=== PATIENT | female | born 1950 | race Caucasian/White ===

== ENCOUNTER 2023-04-16 13:34 | Inpatient (IN) | payer MEDICARE, SELFPAY ==
[2023-04-16 14:00] VITALS: BP 106/46; PULSE 82; RESP 14; TEMP 35.9; O2SAT 98
[2023-04-16 15:27] VITALS: BMI 28.3
[2023-04-16 16:15] VITALS: O2SAT 96
[2023-04-16 17:01] LABS: Bedside Glucose 130 mg/dL (74-106)
[2023-04-16] MEDS: Enoxaparin 40 MG/0.4 ML Syringe SC (17:59)
[2023-04-16] MEDS: Cilostazol 50 MG Tablet PO (18:00)
--- NOTE | 2023-04-16 20:19 | HP.PCM_ITS ---
HPI - General General Date of Admission: 04/16/23 Date of Service: 04/16/23 Chief Complaint: Here for rehabilitation. HPI Narrative CELIA TUCKER, is a 73 Female who presents with followin04/01/2023 Fell at home while checking mail, fell into house. Multiple falls last 6 months. [facility] Emergency Department transferred patient to [facility]. 04/01/2023 Admit to [facility]. Right hip fracture. Tylenol, Oxycodone, Hydromorphone for pain. Labetalol/Hydralazine as needed for elevated blood pressure. 04/03/2023 Orthopedics performed right intramedullary nail fixation. 04/09/2023 PT/OT for debility. Add bowel regimen for oxycodone. Paxil 10mg daily for anxiety. Consider evaluation for memory loss as outpatient. 04/16/2023 Admit to TCU with debility, here for rehabilitation, strengthening, prior to discharge home with . [facility] Medical History (Updated 04/16/23 @ 20:[address] Christian Fu MD) Anxiety Closed right hip fracture Debility Diabetes mellitus Fall Hypertension Memory loss Home Medications acetaminophen 500 mg tablet 1,000 mg PO TID pain 04/16/23 [History Last Taken ] amlodipine 5 mg tablet 5 mg PO DAILY heart 04/16/23 [History Last Taken Unknown] cholecalciferol (vitamin D3) 25 mcg (1,000 unit) capsule 25 mcg PO DAILY supplement 04/16/23 [History Last Taken 04/16/23] cilostazol 50 mg tablet 50 mg PO BID blood 04/16/23 [History Last Taken 04/15/23] dapagliflozin propanediol 10 mg tablet (Farxiga) 10 mg PO DAILY diabetes 04/16/23 [History Last Taken 04/16/23] enoxaparin 40 mg/0.4 mL subcutaneous syringe 40 mg subcut Q12H blood thinner 04/16/23 [History Last Taken 04/16/23] hydrochlorothiazide 12.5 mg tablet 12.5 mg PO DAILY blood pressure 04/16/23 [H istory Last Taken 04/16/23] insulin glargine 100 unit/mL (3 mL) subcutaneous pen (Raymundo AminPen U-100 Insulin) 24 unit subcut QHS diabetes 04/16/23 [History Last Taken 04/15/23] insulin lispro 100 unit/mL subcutaneous pen 10 unit subcut TID diabetes 04/16/23 [History Last Taken 04/16/23] lisinopril 5 mg tablet 5 mg PO DAILY heart 04/16/23 [History Last Taken 04/16/23] melatonin 3 mg tablet 3 mg PO QHS PRN sleep 04/16/23 [History Last Taken Unknown] multivitamin (Multiple Vitamins tablet) 1 tab PO DAILY supplement 04/16/23 [History Last Taken Unknown] ondansetron 4 mg disintegrating tablet 4 mg PO Q8H PRN nausea and vomiting 04/16/23 [History Last Taken Unknown] oxycodone 5 mg tablet 5 mg PO Q6H PRN pain 04/16/23 [History Last Taken Unknown] paroxetine HCl 10 mg tablet 10 mg PO DAILY anxiety 04/16/23 [History Last Taken Unknown] polyethylene glycol 3350 17 gram oral powder packet (Miralax) 17 g PO DAILY PRN constipation 04/16/23 [History Last Taken Unknown] rosuvastatin 40 mg tablet (Crestor) 40 mg PO QHS cholesterol 04/16/23 [History Last Taken Unknown] Allergy/AdvReac Type Severity Reaction Status Date / Time No Known Allergies Allergy Verified 04/16/23 14:54 Surgical History (Updated 04/16/23 @ 20:[address] Christian Fu MD) History of hysterectomy Social History (Updated 04/16/23 @ 20:[address] Christian Fu MD) household members: spouse Smoking Status: Light Smoker (<10/day) alcohol intake: never substance use type: does not use ROS Constitutional Constitutional: Denies chills, fever(s) or weight gain ENT HEENT: Denies headache(s), nasal congestion or nasal discharge Cardiovascular Cardiovascular: Denies chest pain or palpitations Respiratory/Chest Respiratory/Chest: Denies cough, excessive phlegm production or shortness of breath with exertion Gastrointestinal Gastrointestinal: Denies abdominal pain, nausea or vomiting Genitourinary Genitourinary: Denies dysuria Musculoskeletal Musculoskeletal: Denies joint pain or joint swelling Integumentary Integumentary: Denies rash or wounds Neurologic Neurologic: Denies focal weakness, numbness or tingling Psychiatric Psychiatric: Denies anxiety, auditory hallucinations, depression, homicidal ideation or suicidal ideation Vital Signs Vital Signs Vital Signs: 04/16/23 14:00 04/16/23 16:15 Temperature 96.6 F L Temperature Source Temporal Pulse Rate 82 Pulse Rhythm Regular Pulse Strength Normal (2+) Respiratory Rate 14 Respiratory Effort Normal Non-Labored Respiratory Depth Normal Respiratory Pattern Normal Blood Pressure 106/46 L Blood Pressure Mean 66 Blood Pressure Source Monitor Blood Pressure Position Semi-Fowlers Blood Pressure Location Left Arm Pulse Ox 98 96 Oxygen Delivery Method Room Air Room Air Weight Weight: 65.726 kg Body Mass Index (BMI) 28.3 Physical Exam Const alert General Appearance: cooperative HEENT normocephalic Eyes PERRL and EOMs intact bilaterally Neck supple, no JVD and no carotid bruits Resp normal respiratory effort, normal air movement and clear to auscultation lyric aterally Cardio regular rate and regular rhythm GI normal to inspection, nondistended, normoactive bowel sounds, non-tender and non-distended Extremity normal capillary refill General Extremity: Negative for edema Skin no rashes or lesions noted General Skin Exam: no breakdown Psych affect normal Appearance: appropriate Results Lab / Micro Data Labs: Laboratory Results - last 24 hr 04/16/23 16:38: POC Glucose 130 H Assessment & Plan Assessment/Plan (1) Debility: (2) Fall: (3) Closed right hip fracture: (4) Diabetes mellitus: (5) Hypertension: (6) Anxiety: (7) Memory loss: PLAN: Plan 73 year old female with below past medical history hospitalized for right hip fracture, underwent right hip intramedullary nail fixation 04/03/2023, complicated by memory loss, admitted to TCU with debility, here for rehabilitation, strengthening, prior to discharge home with . * Debility - PT/OT. * Pain - Tylenol 1000mg tid, Oxycodone 5mg q4h prn pain (6-10) * Bowel - Miralax 17gm daily, senna/colace 2 tablets bid, Magnesium citrate 300ml po daily prn. * Adult immunization - Administer pneumonia vaccine, covid19 vaccine, flu vaccine as appropriate. * DVT prophylaxis - Lovenox 40mg sc daily thru 05/04/2023. * Hypertension - Lisinopril 5mg daily, HCTZ 12.5mg daily, Amlodipine 5mg daily. * Hyperlipidemia - Atorvastatin 80mg qhs. * PAOD - Pletal 50mg bid. * Diabetes Mellitus II - Glargine 24 units qhs, Lispro 10units tidcm, Jardiance 10mg daily. * Insomnia - Melatonin 3mg qhs prn. * Skin irritation - Calmoseptine topical bid. * Nutrition - MVI 1 daily. * Tinea Corporis - Nystatin powder topical bid. * Nausea - Zofran 4mg q8h prn. * Anxiety - Paxil 10mg daily * Vitamin D deficiency - D3 25mcg daily.
[2023-04-16] MEDS: Acetaminophen 500 MG Tablet 1000 MG PO (20:28)
[2023-04-16] MEDS: Atorvastatin Calcium 80 MG Tablet PO (20:29)
[2023-04-16] MEDS: Insulin Glargine-YFGN 100 UNIT/ML Pen 24 UNIT SC (20:29)
[2023-04-16 21:46] LABS: Bedside Glucose 147 mg/dL (74-106)
[2023-04-17] MEDS: Enoxaparin 40 MG/0.4 ML Syringe SC (05:17)
[2023-04-17] MEDS: hydroCHLOROthiazide 12.5mg 12.5 MG PO (05:17)
[2023-04-17] MEDS: Empagliflozin 10 MG Tablet PO (05:18)
[2023-04-17] MEDS: Cholecalciferol (VIT D3) 25 MCG TABLET (1,000 UNITS) PO (05:18)
[2023-04-17] MEDS: Cilostazol 50 MG Tablet PO ×2 (05:18→17:45)
[2023-04-17] MEDS: Senna/Docusate Sodium 1 Tablet 2 TABLET PO (05:18)
[2023-04-17] MEDS: amLODIPine 5 MG Tablet PO (05:18)
[2023-04-17] MEDS: Lisinopril 5 MG Tablet PO (05:18)
[2023-04-17] MEDS: Acetaminophen 500 MG Tablet 1000 MG PO ×3 (05:18→21:33)
[2023-04-17] MEDS: Polyethylene Glycol 3350 17 GM PACKET PO (05:19)
[2023-04-17] MEDS: PARoxetine 10 MG Tablet PO (05:20)
[2023-04-17] MEDS: Menthol/Lanolin/Calamine/Znox 113 GM Tube 1 APPLIC TOPICAL ×2 (05:25→17:48)
[2023-04-17 05:33] LABS: Absolute Lymphocyte Count 1.39 X10^3/uL (0.83-4.51); Basophil# 0.04 X10^3/uL; Basophil% 0.8 % (0-1); Hemoglobin 11.1 g/dL (12.0-15.0); Lymphocyte # 1.39 X10^3/ul (0.83-4.51); Lymphocyte % 28.2 % (19-41); Mean Corp Hgb Conc 31.7 g/dL (32-36); Mean Corpuscular Volume 94.6 fL (81-99); Mean Platelet Vol. 10.6 fl (6.2-12.0); Monocyte# 0.41 X10^3/uL; Monocyte% 8.3 % (0-10); NRBC Flagged by Analyzer 0 % (0-5); Neutrophil # 2.98 X10^3/uL (2.7-7.7); Neutrophil % 60.5 % (47-70); Platelet Count 227 K/mm3 (150-450); RBC Distribution Width CV 14.9 % (11.6-14.6); RBC Distribution Width SD 51.1 fl (35.1-43.9); White Blood Count 4.9 K/mm3 (4.4-11.0)
[2023-04-17 06:02] LABS: Anion Gap 3 (5-15); BUN 13 mg/dL (7-18); BUN/Creat Ratio 30.3 RATIO (10-20); Chloride 109 mmol/L (98-107); Creatinine, Serum 0.43 mg/dL (0.55-1.02); EST Glomerular Filtration Rate 153 mL/min (>60); Est Glom Filt Rate - Afr Amer 185 mL/min (>60); Estimated Creatinine Clearance 34.91 ml/min; Glucose 110 mg/dL (74-106); Potassium 3.8 mmol/L (3.5-5.1); Sodium Level 142 mmol/L (136-145)
[2023-04-17 06:27] LABS: Bedside Glucose 100 mg/dL (74-106)
[2023-04-17] MEDS: Nystatin Powder 15gm Bottle 1 APPLIC TOPICAL ×2 (08:42→17:48)
[2023-04-17] MEDS: Multivitamins,Therapeutic Tablet 1 TABLET PO (08:42)
[2023-04-17 11:20] LABS: Bedside Glucose 231 mg/dL (74-106)
--- NOTE | 2023-04-17 11:25 | NURSING ---
Dr. Hugo Campa office @[facility] ortho called and gave order for x-ray of Right femur 2 views. Send Disc to [address] [place] [address] [place], [place] [address]. Also, received order to remove nida if incision is healing. Orders read back.
--- NOTE | 2023-04-17 11:45 | RAD_ITS ---
STUDY: X-RAY - RIGHT FEMUR REASON FOR STUDY: Female, 73 years old. Follow up X-ray -- Send Disc to Dr. Hugo Campa [facility] TECHNIQUE: 4 view(s) of the femur. COMPARISON: None. FINDINGS: The patient is status post intramedullary gregory fixation of a comminuted distal femoral diaphyseal fracture. There is good alignment. Soft tissue swelling. There are atherosclerotic vascular calcifications. RAD/Femur Min 2 Views IMPRESSION: Status post intramedullary gregory fixation of the comminuted distal femoral diaphyseal fracture. There is good alignment. Postoperative soft tissue swelling. Electronically Signed: Hai Schwartz MD at 13:32 EDT ,
--- NOTE | 2023-04-17 11:45 | NURSING ---
Pastry Chef Note; Activity Asset: Tomas Ocampo is independent in her choice of daily activities. She has her own books and word puzzles to read and work on. Her family and friends will visit with her and bring her other items she may need or want. While in her room she will also watch tv and rest. She stated she really just wants to do therapy so she can get back home. She will welcome visit from the director software and therapy dog.
--- NOTE | 2023-04-17 11:47 | NURSING ---
Spoke w/ Surgeon for patient. Staple removal completed per surgeon request. 21 nida remove in multiple areas on right lower leg and one area on right upper leg. Patient tolerated removal overall well. Patient had minor reddened area and small minimal drainage noted to the upper right incision area. Note left for Tank about area to see if bacitracin would be appropriate. Patient then transported to imaging to get xrays per Surgeon request. Imaging to be pushed through electronically to surgeon. Surgeons office notified.
--- NOTE | 2023-04-17 11:49 | CHAPLAIN ---
Type of Pastoral Visit _x__ Initial Visit ___ Follow-up Visit ___ On-call Visit ___ General Patient Visit ___ Spiritual Assessment ___ Family Conference ___ Bereavement ___ Rapid Response ___ Code Blue ___ Other (describe below) Pastoral Care Referral From _x__ Patient ___ Family ___ Nurse ___ Physician ___ Lawn Mower Mechanic ___ Clerical Associate ___ Other (describe below) Sacrament/Intervention _x__ Active listening ___ Anointing ___ Sikh ___ Bereavement ___ Communion _x__ Halley exploration ___ _x__ Life review _x__ Prayer ___ Reconciliation ___ Sacrament of Sick _x__ Supportive presence ___ Wedding ___ Other (describe below) Pastoral Comments patient is welcoming and talkative; pt gives health story and in particular about her leg issues; pt speaks about her roots in [place] and how her mother raised her to go to temple; pt states that family is close and that is most important thing in her life; pt is not connected to a halley community at this time but expresses that she still believes and is happy that many family members are temple goers now; pt was given time to talk about her life and her interests; prayer given
[2023-04-17] MEDS: Insulin Lispro 100 UNIT/ML INSULN.PEN 10 UNIT SC ×2 (12:48→17:44)
--- NOTE | 2023-04-17 13:15 | CASEMGMT ---
Social Work Met with patient to complete initial assessment. Introduced self and role. Discussed code status and MOLST form. After much discussion and education, pt confirmed full code, MOLST placed in Dr folder. Educated to [facility] insurance with NRD 04/19 and continued stay is not guaranteed with each review. SW encouraged pt to contact insurance toe verify copays. Pt states she does have advanced directives but unsure if her or dtr is POA and unsure where it is located. Encouraged pt to have look for it and if located, to bring in a copy. Pt expressed understanding. Pt's goal is to return home at OF as cannot assist. SW will continue to follow for DC planning. Adelia Gipson, MIGUEL HUTCHISONW
--- NOTE | 2023-04-17 14:45 | PCM.PN.DRR ---
TCU RX Drug Regimen Review Subjective/Objective Subjective/Objective: Subjective: TCU Admission. 73 YOF presented to outside ER with a fall and transferred to [facility]. Hospitalized for right hip fracture, underwent right hip intramedullary nail fixation 04/03/2023, complicated by memory loss. Admitted to TCU with debility for strengthening and rehabilitation. Objective: Allergies No Known Allergies Allergy (Verified 04/16/23 14:54) Current Medications Generic Name Dose Route Start Last Admin Trade Name Hu PRN Reason Stop Dose Admin Acetaminophen 1,000 mg 04/16/23 22:00 04/17/23 05:18 Acetaminophen 500 Mg Tablet PO 1,000 mg TID LORENZO Administration Amlodipine Besylate 5 mg 04/17/23 06:00 04/17/23 05:18 Amlodipine 5 Mg Tablet PO 5 mg DAILY LORENZO Administration Atorvastatin Calcium 80 mg 04/16/23 22:00 04/16/23 20:29 Atorvastatin Calcium 80 Mg Tablet PO 80 mg QHS LORENZO Administration Calamine/Phenol 1 applic 04/17/23 06:00 04/17/23 05:25 Menthol/Lanolin/Calamine/Znox 113 Gm Tube TOPICAL 1 applic BID LORENZO Administration Protocol Cholecalciferol 25 mcg 04/17/23 06:00 04/17/23 05:18 Cholecalciferol (Vit D3) 25 Mcg Tablet (1,000 Units) PO 25 mcg DAILY LORENZO Administration Cilostazol 50 mg 04/16/23 18:00 04/17/23 05:18 Cilostazol 50 Mg Tablet PO 50 mg BID LORENZO Administration Empagliflozin 10 mg 04/17/23 06:00 04/17/23 05:18 Empagliflozin 10 Mg Tablet PO 10 mg DAILY LORENZO Administration Enoxaparin Sodium 40 mg 04/17/23 06:00 04/17/23 05:17 Enoxaparin 40 Mg/0.4 Ml Syringe SC 05/04/23 23:59 40 mg 0600 LORENZO Administration Hydrochlorothiazide 12.5 mg 04/17/23 06:00 04/17/23 05:17 Hydrochlorothiazide 12.5mg PO 12.5 mg DAILY LORENZO Administration Insulin Glargine 24 unit 04/16/23 22:00 04/16/23 20:29 Insulin Glargine-Yfgn 100 Unit/Ml Pen SC 24 unit QHS LORENZO Administration Insulin Human Lispro 10 unit 04/16/23 17:45 04/17/23 08:03 Insulin Lispro 100 Unit/Ml Insuln.Pen SC Not Given TIDCM [facility] Lisinopril 5 mg 04/17/23 06:00 04/17/23 05:18 Lisinopril 5 Mg Tablet PO 5 mg DAILY LORENZO Administration Magnesium Citrate 300 ml 04/16/23 20:34 Magnesium Citrate 300 Ml PO DAILY PRN Constipation Melatonin 3 mg 04/16/23 15:03 Melatonin 3 Mg Tablet PO QHS PRN sleep Multivitamins 1 tablet 04/17/23 08:00 04/17/23 08:42 Multivitamins,Therapeutic Tablet PO 1 tablet DAILYCM LORENZO Administration Nystatin 1 applic 04/17/23 06:00 04/17/23 08:42 Nystatin Powder 15gm Bottle TOPICAL 1 applic BID LORENZO Administration Protocol Ondansetron HCl 4 mg 04/16/23 15:03 Ondansetron Odt 4 Mg Tablet PO Q8H PRN nausea and vomiting Oxycodone HCl 5 mg 04/16/23 20:35 Oxycodone 5 Mg Tablet PO Q4H PRN PRN Pain Score 6-10 Paroxetine HCl 10 mg 04/17/23 06:00 04/17/23 05:20 Paroxetine 10 Mg Tablet PO 10 mg DAILY LORENZO Administration Polyethylene Glycol 17 gm 04/16/23 15:03 Polyethylene Glycol 3350 17 Gm Packet PO DAILY PRN constipation Polyethylene Glycol 17 gm 04/17/23 06:00 04/17/23 05:19 Polyethylene Glycol 3350 17 Gm Packet PO 17 gm DAILY LORENZO Administration Senna/Docusate Sodium 2 tablet 04/16/23 20:45 04/17/23 05:18 Senna/Docusate Sodium 1 Tablet PO 2 tablet BID LORENZO Administration Tuberculin PPD 0.1 ml 04/24/23 10:00 Tuberculin,Purif.Prot.Deriv. 50 Tu/Ml Vial ID 04/24/23 10:01 X1 ONE Problem List (Updated 04/16/23 @ 20:[address] Christian Fu MD) Memory loss (Acute) Anxiety (Acute) Hypertension (Chronic) Diabetes mellitus (Acute) Closed right hip fracture (Acute) Fall (Acute) Debility (Acute) Vital Signs Temp Pulse Resp BP Pulse Ox O2 Del Method 96.6 F L 82 14 106/46 L 96 Room Air 04/16/23 14:00 04/16/23 14:00 04/16/23 14:00 04/16/23 14:00 04/16/23 16:15 04/16/23 16:15 Oxygen Delivery Method Room Air Weight: 65.726 kg Body Mass Index (BMI) 28.3 Sodium 142 mmol/L (136-145) 04/17/23 05:08 Potassium 3.8 mmol/L (3.5-5.1) 04/17/23 05:08 Chloride 109 mmol/L (98-107) H 04/17/23 05:08 Carbon Dioxide 30.0 mmol/L (21.0-32.0) 04/17/23 05:08 Anion Gap 3 (5-15) L 04/17/23 05:08 BUN 13 mg/dL (7-18) 04/17/23 05:08 Creatinine 0.43 mg/dL (0.55-1.02) L 04/17/23 05:08 Est GFR (MDRD) Af Amer 185 mL/min (>60) 04/17/23 05:08 Est GFR (MDRD) Non-Af 153 mL/min (>60) 04/17/23 05:08 BUN/Creatinine Ratio 30.3 RATIO (10-20) H 04/17/23 05:08 Glucose 110 mg/dL (74-106) H 04/17/23 05:08 Assessment/Plan: 1. Pain: acetaminophen 1000mg PO TID and oxycodone 5mg PO Q4H PRN pain 6-10. Resident has not had any PRN doses. Please continue to monitor for increased pain and PRN usage. 2. Bowel: Miralax 17gm PO daily and daily PRN constipation, senna/docusate 2T PO BID and magnesium citrate 300mL PO daily PRN constipation. Resident has not used any PRN doses. Please continue to monitor for constipation and PRN usage. No documented bowel movements to date. 3. DVT prophylaxis: enoxaparin 40mg SC daily thru 05/04/23. Please continue to monitor for S/S of bleeding, renal function, hemoglobin (last 11.1g/dL) and platelets (last 227,000). 4. Hypertension: lisinopril 5 mg PO daily, hydrochlorothiazide 12.5 mg PO daily and amlodipine 5 mg PO daily. Continue to monitor BP (last 106/46 on 04/16), sodium (last 142 on 04/17), potassium (last 3.8 on 04/17), s/s of lower extremity swelling, renal function, cough and hypotension.?? 5. Hyperlipidemia: atorvastatin 80 mg PO QHS. Please consider ordering a lipid panel and LFTs if clinically appropriate as there are no levels in the chart. Thanks. Please continue to monitor for muscle pain. 6. PAOD: cilostazol 50 mg PO BID. Monitor WBCs/platelets with a CBC (last performed on 04/17) and for s/s of HF (Black Box Warning/BEERs: Cilostazol is CI in HF of any severity due to increased mortality). 7. Diabetes mellitus II: insulin glargine 24 units SC QHS, insulin lispro 10 units SC TIDCM, empagliflozin 10 mg PO daily. Continue to monitor blood glucose (last 231mg/dL) and for s/s of hypoglycemia and UTI.?Please consider ordering a hemoglobin A1c as there is no level in the chart. Thanks. 8. Insomnia: melatonin 3 mg PO DAILY PRN for insomnia. The resident has not had any PRN usage of this medication. Continue to monitor for s/s of insomnia and PRN usage.??? 9. Nutrition: multivitamin 1 tablet PO daily.?? 10. Nausea: ondansetron 4 mg PO Q8H PRN for nausea and vomiting. The resident has not had any prn usage of this medication. Continue to monitor for nausea/vomiting.? 11. Vitamin D deficiency: cholecalciferol 25 mcg PO daily. Please consider ordering a vitamin D level as there is no level in the chart. Thanks.? Assessment/Plan for indications treated with psychotropic medications: 1. Anxiety: paroxetine 10 mg PO daily. This medication is classified as a potentially inappropriate medication in older adults due to its anticholinergic properties, sedation, delirium, falls/fractures and potential for hypotension (Beers Criteria). Please consider GDR by 10/2023 if clinically appropriate. Thanks. Continue to monitor for suicidal ideation (Black Box Warning), GI side efffects and sodium.? Medical chart and medication regimen reviewed. The following medication irregularities or issues were identified: *1. Atorvastatin 80 mg PO QHS. Please consider ordering a lipid panel and LFTs if clinically appropriate as there are no levels in the chart. Thanks. *2. Insulin glargine 24 units SC QHS, insulin lispro 10 units SC TIDCM, empagliflozin 10 mg PO daily.?Please consider ordering a hemoglobin A1c as there is no level in the chart. Thanks. *3. Cholecalciferol 25 mcg PO daily. Please consider ordering a vitamin D level as there is no level in the chart. Thanks.? *4. Paroxetine 10 mg PO daily. Please consider GDR by 10/2023 if clinically appropriate. Thanks. Date Date of Note:: 04/17/23
[2023-04-17] MEDS: Tuberculin,Purif.prot.deriv. 50 TU/ML Vial 0.1 ML ID (15:49)
[2023-04-17 16:00] VITALS: BP 102/41; PULSE 110; RESP 14; TEMP 36.4; O2SAT 94
[2023-04-17 16:58] LABS: Bedside Glucose 292 mg/dL (74-106)
[2023-04-17] MEDS: BACITRACIN 15 GM Tube 1 APPLIC TOPICAL ×2 (17:44→21:32)
[2023-04-17 21:24] LABS: Bedside Glucose 97 mg/dL (74-106)
[2023-04-17] MEDS: MELATONIN 3 MG TABLET PO (21:32)
[2023-04-17] MEDS: Atorvastatin Calcium 80 MG Tablet PO (21:33)
[2023-04-17 23:00] VITALS: PULSE 86; RESP 16; O2SAT 97
[2023-04-18 06:20] LABS: Bedside Glucose 127 mg/dL (74-106)
[2023-04-18] MEDS: Menthol/Lanolin/Calamine/Znox 113 GM Tube 1 APPLIC TOPICAL ×2 (06:35→17:08)
[2023-04-18] MEDS: hydroCHLOROthiazide 12.5mg 12.5 MG PO (06:36)
[2023-04-18] MEDS: Senna/Docusate Sodium 1 Tablet 2 TABLET PO ×2 (06:36→17:07)
[2023-04-18] MEDS: Cilostazol 50 MG Tablet PO ×2 (06:36→17:07)
[2023-04-18] MEDS: amLODIPine 5 MG Tablet PO (06:36)
[2023-04-18] MEDS: Polyethylene Glycol 3350 17 GM PACKET PO (06:36)
[2023-04-18] MEDS: Lisinopril 5 MG Tablet PO (06:36)
[2023-04-18] MEDS: Acetaminophen 500 MG Tablet 1000 MG PO ×3 (06:36→21:18)
[2023-04-18] MEDS: PARoxetine 10 MG Tablet PO (06:36)
[2023-04-18] MEDS: Enoxaparin 40 MG/0.4 ML Syringe SC (06:36)
[2023-04-18] MEDS: Cholecalciferol (VIT D3) 25 MCG TABLET (1,000 UNITS) PO (06:36)
[2023-04-18] MEDS: Empagliflozin 10 MG Tablet PO (06:37)
[2023-04-18] MEDS: Nystatin Powder 15gm Bottle 1 APPLIC TOPICAL ×2 (06:42→17:08)
[2023-04-18] MEDS: BACITRACIN 15 GM Tube 1 APPLIC TOPICAL ×3 (06:42→21:20)
[2023-04-18 06:48] VITALS: BP 115/60; PULSE 84; RESP 16
[2023-04-18] MEDS: Insulin Lispro 100 UNIT/ML INSULN.PEN 10 UNIT SC ×3 (07:56→17:07)
[2023-04-18] MEDS: Multivitamins,Therapeutic Tablet 1 TABLET PO (07:56)
[2023-04-18 10:55] LABS: Bedside Glucose 172 mg/dL (74-106)
[2023-04-18 14:49] VITALS: BP 101/55; PULSE 86; RESP 20; TEMP 36.6; O2SAT 98
[2023-04-18 16:41] LABS: Bedside Glucose 147 mg/dL (74-106)
[2023-04-18] MEDS: Atorvastatin Calcium 80 MG Tablet PO (21:18)
[2023-04-18] MEDS: Insulin Glargine-YFGN 100 UNIT/ML Pen 24 UNIT SC (21:18)
[2023-04-18 21:33] LABS: Bedside Glucose 242 mg/dL (74-106)
[2023-04-19 05:50] VITALS: BP 113/99; PULSE 82
[2023-04-19] MEDS: Senna/Docusate Sodium 1 Tablet 2 TABLET PO ×2 (05:57→17:41)
[2023-04-19] MEDS: PARoxetine 10 MG Tablet PO (05:57)
[2023-04-19] MEDS: Empagliflozin 10 MG Tablet PO (05:57)
[2023-04-19] MEDS: Polyethylene Glycol 3350 17 GM PACKET PO (05:58)
[2023-04-19] MEDS: Cholecalciferol (VIT D3) 25 MCG TABLET (1,000 UNITS) PO (05:58)
[2023-04-19] MEDS: Cilostazol 50 MG Tablet PO ×2 (05:58→17:40)
[2023-04-19] MEDS: Lisinopril 5 MG Tablet PO (05:58)
[2023-04-19] MEDS: Enoxaparin 40 MG/0.4 ML Syringe SC (05:58)
[2023-04-19] MEDS: hydroCHLOROthiazide 12.5mg 12.5 MG PO (05:58)
[2023-04-19] MEDS: amLODIPine 5 MG Tablet PO (05:58)
[2023-04-19] MEDS: Acetaminophen 500 MG Tablet 1000 MG PO ×3 (05:58→21:00)
[2023-04-19] MEDS: Nystatin Powder 15gm Bottle 1 APPLIC TOPICAL ×2 (06:06→17:44)
[2023-04-19] MEDS: Menthol/Lanolin/Calamine/Znox 113 GM Tube 1 APPLIC TOPICAL ×2 (06:07→17:44)
[2023-04-19 06:34] LABS: Bedside Glucose 111 mg/dL (74-106)
[2023-04-19] MEDS: Multivitamins,Therapeutic Tablet 1 TABLET PO (07:44)
[2023-04-19] MEDS: Insulin Lispro 100 UNIT/ML INSULN.PEN 10 UNIT SC ×3 (07:45→17:39)
[2023-04-19 11:47] LABS: Bedside Glucose 99 mg/dL (74-106)
[2023-04-19 13:52] VITALS: BP 122/102; PULSE 67; RESP 20; TEMP 36.2; O2SAT 96
[2023-04-19] MEDS: BACITRACIN 15 GM Tube 1 APPLIC TOPICAL ×2 (14:23→21:00)
[2023-04-19 17:23] LABS: Bedside Glucose 134 mg/dL (74-106)
[2023-04-19] MEDS: Insulin Glargine-YFGN 100 UNIT/ML Pen 24 UNIT SC (21:00)
[2023-04-19] MEDS: Atorvastatin Calcium 80 MG Tablet PO (21:00)
[2023-04-19 21:19] LABS: Bedside Glucose 175 mg/dL (74-106)
[2023-04-19 22:00] VITALS: PULSE 78; RESP 16; O2SAT 97
[2023-04-20] MEDS: Enoxaparin 40 MG/0.4 ML Syringe SC (06:30)
[2023-04-20] MEDS: Polyethylene Glycol 3350 17 GM PACKET PO (06:30)
[2023-04-20] MEDS: Acetaminophen 500 MG Tablet 1000 MG PO ×3 (06:30→21:51)
[2023-04-20] MEDS: Cilostazol 50 MG Tablet PO ×2 (06:30→17:34)
[2023-04-20] MEDS: Lisinopril 5 MG Tablet PO (06:31)
[2023-04-20] MEDS: amLODIPine 5 MG Tablet PO (06:31)
[2023-04-20] MEDS: Cholecalciferol (VIT D3) 25 MCG TABLET (1,000 UNITS) PO (06:31)
[2023-04-20] MEDS: Senna/Docusate Sodium 1 Tablet 2 TABLET PO ×2 (06:31→17:34)
[2023-04-20] MEDS: Menthol/Lanolin/Calamine/Znox 113 GM Tube 1 APPLIC TOPICAL ×2 (06:31→15:19)
[2023-04-20] MEDS: Nystatin Powder 15gm Bottle 1 APPLIC TOPICAL ×2 (06:31→17:35)
[2023-04-20] MEDS: hydroCHLOROthiazide 12.5mg 12.5 MG PO (06:31)
[2023-04-20] MEDS: BACITRACIN 15 GM Tube 1 APPLIC TOPICAL ×3 (06:32→21:53)
[2023-04-20] MEDS: Empagliflozin 10 MG Tablet PO (06:32)
[2023-04-20 07:01] LABS: Bedside Glucose 136 mg/dL (74-106)
[2023-04-20] MEDS: PARoxetine 10 MG Tablet PO (07:09)
[2023-04-20 07:39] LABS: Bedside Glucose 152 mg/dL (74-106)
[2023-04-20] MEDS: Insulin Lispro 100 UNIT/ML INSULN.PEN 10 UNIT SC ×3 (08:27→17:36)
[2023-04-20] MEDS: Multivitamins,Therapeutic Tablet 1 TABLET PO (09:26)
[2023-04-20] MEDS: oxyCODONE 5 MG Tablet PO (09:33)
[2023-04-20 11:07] LABS: Bedside Glucose 127 mg/dL (74-106)
[2023-04-20 15:02] VITALS: BP 120/54; PULSE 83; RESP 16; TEMP 36.6; O2SAT 97
[2023-04-20 16:14] LABS: Bedside Glucose 177 mg/dL (74-106)
[2023-04-20 19:53] VITALS: PULSE 85; RESP 16; O2SAT 98
[2023-04-20] MEDS: Atorvastatin Calcium 80 MG Tablet PO (21:52)
[2023-04-20] MEDS: Insulin Glargine-YFGN 100 UNIT/ML Pen 24 UNIT SC (21:52)
[2023-04-20 22:03] LABS: Bedside Glucose 158 mg/dL (74-106)
[2023-04-21] MEDS: Cilostazol 50 MG Tablet PO ×2 (06:18→17:19)
[2023-04-21] MEDS: Lisinopril 5 MG Tablet PO (06:18)
[2023-04-21] MEDS: Senna/Docusate Sodium 1 Tablet 2 TABLET PO (06:18)
[2023-04-21] MEDS: Acetaminophen 500 MG Tablet 1000 MG PO ×3 (06:18→21:30)
[2023-04-21] MEDS: Cholecalciferol (VIT D3) 25 MCG TABLET (1,000 UNITS) PO (06:18)
[2023-04-21] MEDS: amLODIPine 5 MG Tablet PO (06:18)
[2023-04-21] MEDS: hydroCHLOROthiazide 12.5mg 12.5 MG PO (06:18)
[2023-04-21] MEDS: Enoxaparin 40 MG/0.4 ML Syringe SC (06:19)
[2023-04-21] MEDS: PARoxetine 10 MG Tablet PO (06:22)
[2023-04-21] MEDS: BACITRACIN 15 GM Tube 1 APPLIC TOPICAL ×3 (06:22→21:31)
[2023-04-21] MEDS: Empagliflozin 10 MG Tablet PO (06:22)
[2023-04-21] MEDS: Nystatin Powder 15gm Bottle 1 APPLIC TOPICAL ×2 (06:23→17:20)
[2023-04-21 06:46] LABS: Bedside Glucose 111 mg/dL (74-106)
[2023-04-21] MEDS: Multivitamins,Therapeutic Tablet 1 TABLET PO (08:14)
[2023-04-21] MEDS: Insulin Lispro 100 UNIT/ML INSULN.PEN 10 UNIT SC ×3 (08:15→17:19)
[2023-04-21] MEDS: Menthol/Lanolin/Calamine/Znox 113 GM Tube 1 APPLIC TOPICAL ×2 (08:18→17:23)
[2023-04-21 11:55] LABS: Bedside Glucose 77 mg/dL (74-106)
[2023-04-21 15:57] VITALS: BP 98/47; PULSE 83; RESP 16; TEMP 36.2; O2SAT 98
[2023-04-21 17:23] LABS: Bedside Glucose 90 mg/dL (74-106)
[2023-04-21] MEDS: Atorvastatin Calcium 80 MG Tablet PO (21:31)
[2023-04-21 21:44] LABS: Bedside Glucose 87 mg/dL (74-106)
--- NOTE | 2023-04-21 22:00 | NURSING ---
Patients blood sugar at HS 87. Patient ate some ice cream. Lantus 24U held at this time. Will continue to monitor.
[2023-04-22] MEDS: BACITRACIN 15 GM Tube 1 APPLIC TOPICAL (05:24)
[2023-04-22] MEDS: Acetaminophen 500 MG Tablet 1000 MG PO ×3 (05:25→21:19)
[2023-04-22] MEDS: Cilostazol 50 MG Tablet PO ×2 (05:25→18:02)
[2023-04-22] MEDS: Cholecalciferol (VIT D3) 25 MCG TABLET (1,000 UNITS) PO (05:25)
[2023-04-22] MEDS: Lisinopril 5 MG Tablet PO (05:25)
[2023-04-22] MEDS: Enoxaparin 40 MG/0.4 ML Syringe SC (05:25)
[2023-04-22] MEDS: hydroCHLOROthiazide 12.5mg 12.5 MG PO (05:25)
[2023-04-22] MEDS: amLODIPine 5 MG Tablet PO (05:25)
[2023-04-22] MEDS: Nystatin Powder 15gm Bottle 1 APPLIC TOPICAL ×2 (05:26→18:01)
[2023-04-22] MEDS: Empagliflozin 10 MG Tablet PO (05:26)
[2023-04-22] MEDS: PARoxetine 10 MG Tablet PO (05:26)
[2023-04-22] MEDS: Menthol/Lanolin/Calamine/Znox 113 GM Tube 1 APPLIC TOPICAL ×2 (05:27→18:01)
[2023-04-22 06:55] LABS: Bedside Glucose 100 mg/dL (74-106)
[2023-04-22] MEDS: Insulin Lispro 100 UNIT/ML INSULN.PEN 10 UNIT SC ×3 (08:41→18:01)
[2023-04-22] MEDS: Multivitamins,Therapeutic Tablet 1 TABLET PO (08:41)
--- NOTE | 2023-04-22 11:51 | NURSING ---
Offered covid vaccine, provided education about vaccine. Patient refuses at this time.
[2023-04-22 11:58] LABS: Bedside Glucose 206 mg/dL (74-106)
[2023-04-22 15:11] VITALS: BP 108/43; PULSE 81; RESP 16; TEMP 35.8; O2SAT 97
--- NOTE | 2023-04-22 15:29 | WOUNDNOTE ---
wound photo: right anterior thigh
--- NOTE | 2023-04-22 15:30 | WOUNDNOTE ---
wound photo: right leg
--- NOTE | 2023-04-22 15:31 | WOUNDNOTE ---
wound photo: right leg
[2023-04-22 17:43] LABS: Bedside Glucose 114 mg/dL (74-106)
[2023-04-22 20:00] VITALS: PULSE 86; RESP 16; O2SAT 96
[2023-04-22] MEDS: Insulin Glargine-YFGN 100 UNIT/ML Pen 24 UNIT SC (21:19)
[2023-04-22] MEDS: Atorvastatin Calcium 80 MG Tablet PO (21:19)
[2023-04-22 21:36] LABS: Bedside Glucose 163 mg/dL (74-106)
[2023-04-23] MEDS: Nystatin Powder 15gm Bottle 1 APPLIC TOPICAL ×2 (06:13→18:32)
[2023-04-23] MEDS: Enoxaparin 40 MG/0.4 ML Syringe SC (06:15)
[2023-04-23] MEDS: Senna/Docusate Sodium 1 Tablet 2 TABLET PO (06:15)
[2023-04-23] MEDS: Cholecalciferol (VIT D3) 25 MCG TABLET (1,000 UNITS) PO (06:15)
[2023-04-23] MEDS: Polyethylene Glycol 3350 17 GM PACKET PO (06:15)
[2023-04-23] MEDS: Lisinopril 5 MG Tablet PO (06:16)
[2023-04-23] MEDS: Empagliflozin 10 MG Tablet PO (06:16)
[2023-04-23] MEDS: hydroCHLOROthiazide 12.5mg 12.5 MG PO (06:16)
[2023-04-23] MEDS: amLODIPine 5 MG Tablet PO (06:16)
[2023-04-23] MEDS: Acetaminophen 500 MG Tablet 1000 MG PO ×3 (06:16→21:18)
[2023-04-23] MEDS: Cilostazol 50 MG Tablet PO ×2 (06:16→18:32)
[2023-04-23] MEDS: PARoxetine 10 MG Tablet PO (06:17)
[2023-04-23] MEDS: Menthol/Lanolin/Calamine/Znox 113 GM Tube 1 APPLIC TOPICAL ×2 (06:22→21:22)
[2023-04-23 06:30] VITALS: BP 108/60; PULSE 78; RESP 16
[2023-04-23 06:32] LABS: Bedside Glucose 124 mg/dL (74-106)
[2023-04-23] MEDS: Insulin Lispro 100 UNIT/ML INSULN.PEN 10 UNIT SC ×3 (08:07→18:32)
[2023-04-23] MEDS: Multivitamins,Therapeutic Tablet 1 TABLET PO (08:08)
[2023-04-23 11:08] LABS: Bedside Glucose 216 mg/dL (74-106)
[2023-04-23 14:08] VITALS: BP 120/52; PULSE 87; RESP 16; TEMP 36.1; O2SAT 97
[2023-04-23 17:11] LABS: Bedside Glucose 140 mg/dL (74-106)
[2023-04-23] MEDS: Atorvastatin Calcium 80 MG Tablet PO (21:19)
[2023-04-23] MEDS: Insulin Glargine-YFGN 100 UNIT/ML Pen 24 UNIT SC (21:19)
[2023-04-24] MEDS: hydroCHLOROthiazide 12.5mg 12.5 MG PO (05:13)
[2023-04-24] MEDS: Senna/Docusate Sodium 1 Tablet 2 TABLET PO (05:13)
[2023-04-24] MEDS: Lisinopril 5 MG Tablet PO (05:14)
[2023-04-24] MEDS: PARoxetine 10 MG Tablet PO (05:14)
[2023-04-24] MEDS: Cholecalciferol (VIT D3) 25 MCG TABLET (1,000 UNITS) PO (05:14)
[2023-04-24] MEDS: Acetaminophen 500 MG Tablet 1000 MG PO ×3 (05:14→21:24)
[2023-04-24] MEDS: Cilostazol 50 MG Tablet PO ×2 (05:14→17:58)
[2023-04-24] MEDS: amLODIPine 5 MG Tablet PO (05:14)
[2023-04-24] MEDS: Polyethylene Glycol 3350 17 GM PACKET PO (05:14)
[2023-04-24] MEDS: Empagliflozin 10 MG Tablet PO (05:14)
[2023-04-24 05:20] VITALS: BP 138/69; PULSE 85
[2023-04-24 05:45] LABS: Absolute Lymphocyte Count 1.15 X10^3/uL (0.83-4.51); Absolute Neutrophil Count 2.8 X10^3/uL (2.0-7.7); Basophil# 0.02 X10^3/uL; Basophil% 0.5 % (0-1); Eosinophil# 0.08 X10^3/uL; Eosinophils% 1.8 % (0-5); Hematocrit 37.3 % (37-47); Hemoglobin 11.8 g/dL (12.0-15.0); Lymphocyte # 1.15 X10^3/ul (0.83-4.51); Lymphocyte % 26.4 % (19-41); Mean Corp Hgb Conc 31.6 g/dL (32-36); Mean Corpuscular Hgb 30.1 pg (27.0-32.0); Mean Corpuscular Volume 95.2 fL (81-99); Mean Platelet Vol. 10.4 fl (6.2-12.0); Monocyte# 0.33 X10^3/uL; Monocyte% 7.6 % (0-10); NRBC Flagged by Analyzer 0 % (0-5); Neutrophil # 2.76 X10^3/uL (2.7-7.7); Neutrophil % 63.5 % (47-70); Platelet Count 215 K/mm3 (150-450); RBC Distribution Width CV 14.6 % (11.6-14.6); RBC Distribution Width SD 51.4 fl (35.1-43.9); Red Blood Count 3.92 M/mm3 (4.2-5.4); White Blood Count 4.4 K/mm3 (4.4-11.0)
[2023-04-24 06:06] LABS: Anion Gap 3 (5-15); BUN 15 mg/dL (7-18); BUN/Creat Ratio 40.1 RATIO (10-20); Calcium,Total 8.8 mg/dL (8.5-10.1); Chloride 109 mmol/L (98-107); Creatinine, Serum 0.37 mg/dL (0.55-1.02); EST Glomerular Filtration Rate 179 mL/min (>60); Est Glom Filt Rate - Afr Amer 216 mL/min (>60); Estimated Creatinine Clearance 34.91 ml/min; Glucose 102 mg/dL (74-106); Potassium 3.6 mmol/L (3.5-5.1); Sodium Level 142 mmol/L (136-145)
[2023-04-24 06:40] LABS: Bedside Glucose 113 mg/dL (74-106)
[2023-04-24] MEDS: Enoxaparin 40 MG/0.4 ML Syringe SC (07:58)
[2023-04-24] MEDS: Menthol/Lanolin/Calamine/Znox 113 GM Tube 1 APPLIC TOPICAL ×2 (07:59→18:01)
[2023-04-24] MEDS: Nystatin Powder 15gm Bottle 1 APPLIC TOPICAL ×2 (08:01→18:01)
[2023-04-24] MEDS: Insulin Lispro 100 UNIT/ML INSULN.PEN 10 UNIT SC ×3 (08:45→17:57)
[2023-04-24] MEDS: Multivitamins,Therapeutic Tablet 1 TABLET PO (08:45)
[2023-04-24 11:17] LABS: Bedside Glucose 203 mg/dL (74-106)
[2023-04-24] MEDS: Tuberculin,Purif.prot.deriv. 50 TU/ML Vial 0.1 ML ID (12:11)
[2023-04-24 13:39] VITALS: BP 98/41; PULSE 90; RESP 14; TEMP 37.1; O2SAT 97
--- NOTE | 2023-04-24 14:34 | CASEMGMT ---
Social Work Plan of care meeting held with pt, pts spouse and pts son Nakul present. Therapy discussed progress with PT, OT and ST. SW notified pt and family that NRD with insurance is 04/29 with expected d/c date of 05/02. SW discussed home situation and pt falls and possible need for AL. PT and family adamant that pt can return home on date set and have no concerns. Son Nakul states he can assist as needed. Pt states that she does not follow with a PCP but had seen [facility] in the past. Team expressed importance of following with PCP for medical management. Home health care also discussed and pt agreeable. Pt would benefit from Home health RN for medication management and diabetic teaching. SW will continue to follow for DC planning. ALEJANDRO Bailey
--- NOTE | 2023-04-24 14:47 | NURSING ---
Family request patient to get nutritional drink with meals. This nurse reports network field engineer evaluates needs for nutritional supplement at intervals. Discuss with patient and she reports appetite has been good and actually wants to loose some weight but that her drinks boosts which helps his energy levels. Discuss the purpose of boost and that if she is eating her meals and healing well, nutritional supplement may not be appropriate but that network field engineer will evaluate. Patient reports understanding and that she probably doesn't need this ordered at hospital at this time.
[2023-04-24 16:19] LABS: Bedside Glucose 155 mg/dL (74-106)
[2023-04-24] MEDS: Atorvastatin Calcium 80 MG Tablet PO (21:24)
[2023-04-24] MEDS: Insulin Glargine-YFGN 100 UNIT/ML Pen 24 UNIT SC (21:31)
[2023-04-24 21:56] LABS: Bedside Glucose 186 mg/dL (74-106)
[2023-04-25] MEDS: Menthol/Lanolin/Calamine/Znox 113 GM Tube 1 APPLIC TOPICAL ×2 (05:32→18:22)
[2023-04-25] MEDS: Nystatin Powder 15gm Bottle 1 APPLIC TOPICAL ×2 (05:32→22:04)
[2023-04-25] MEDS: Enoxaparin 40 MG/0.4 ML Syringe SC (05:33)
[2023-04-25] MEDS: Senna/Docusate Sodium 1 Tablet 2 TABLET PO (05:33)
[2023-04-25] MEDS: amLODIPine 5 MG Tablet PO (05:34)
[2023-04-25] MEDS: Cholecalciferol (VIT D3) 25 MCG TABLET (1,000 UNITS) PO (05:34)
[2023-04-25] MEDS: Cilostazol 50 MG Tablet PO ×2 (05:34→18:20)
[2023-04-25] MEDS: Acetaminophen 500 MG Tablet 1000 MG PO ×3 (05:34→22:04)
[2023-04-25] MEDS: hydroCHLOROthiazide 12.5mg 12.5 MG PO (05:35)
[2023-04-25] MEDS: Lisinopril 5 MG Tablet PO (05:35)
[2023-04-25] MEDS: PARoxetine 10 MG Tablet PO (05:36)
[2023-04-25] MEDS: Empagliflozin 10 MG Tablet PO (05:36)
[2023-04-25 06:39] LABS: Bedside Glucose 119 mg/dL (74-106)
[2023-04-25 07:03] VITALS: BP 123/62; PULSE 93; RESP 18; O2SAT 95
[2023-04-25] MEDS: Insulin Lispro 100 UNIT/ML INSULN.PEN 10 UNIT SC ×3 (08:27→18:18)
[2023-04-25] MEDS: Multivitamins,Therapeutic Tablet 1 TABLET PO (08:29)
[2023-04-25 11:23] LABS: Bedside Glucose 105 mg/dL (74-106)
--- NOTE | 2023-04-25 14:33 | CASEMGMT ---
SW spoke with community marketing coordinator regarding pt stating she does not have PCP. Per community marketing coordinator, phone call to [facility] and pt is current with Michelle Fernandez CNP. Appointment made for 05/10/23. ALEJANDRO Bailey
[2023-04-25 14:47] LABS: Bedside Glucose 195 mg/dL (74-106)
[2023-04-25 15:41] VITALS: BP 107/46; PULSE 79; RESP 15; TEMP 35.9; O2SAT 96
[2023-04-25 16:39] LABS: Bedside Glucose 105 mg/dL (74-106)
[2023-04-25 21:28] LABS: Bedside Glucose 142 mg/dL (74-106)
[2023-04-25] MEDS: Atorvastatin Calcium 80 MG Tablet PO (22:04)
[2023-04-25] MEDS: Insulin Glargine-YFGN 100 UNIT/ML Pen 24 UNIT SC (22:05)
[2023-04-26] MEDS: Enoxaparin 40 MG/0.4 ML Syringe SC (06:10)
[2023-04-26] MEDS: Lisinopril 5 MG Tablet PO (06:11)
[2023-04-26] MEDS: Acetaminophen 500 MG Tablet 1000 MG PO ×3 (06:11→22:02)
[2023-04-26] MEDS: PARoxetine 10 MG Tablet PO (06:11)
[2023-04-26] MEDS: amLODIPine 5 MG Tablet PO (06:11)
[2023-04-26] MEDS: Cilostazol 50 MG Tablet PO ×2 (06:11→18:43)
[2023-04-26] MEDS: Empagliflozin 10 MG Tablet PO (06:11)
[2023-04-26] MEDS: Cholecalciferol (VIT D3) 25 MCG TABLET (1,000 UNITS) PO (06:11)
[2023-04-26] MEDS: Senna/Docusate Sodium 1 Tablet 2 TABLET PO ×2 (06:11→18:43)
[2023-04-26] MEDS: hydroCHLOROthiazide 12.5mg 12.5 MG PO (06:11)
[2023-04-26] MEDS: Menthol/Lanolin/Calamine/Znox 113 GM Tube 1 APPLIC TOPICAL ×2 (06:16→18:48)
[2023-04-26] MEDS: Nystatin Powder 15gm Bottle 1 APPLIC TOPICAL ×2 (06:16→18:48)
[2023-04-26 06:30] LABS: Bedside Glucose 93 mg/dL (74-106)
[2023-04-26] MEDS: Multivitamins,Therapeutic Tablet 1 TABLET PO (09:09)
[2023-04-26 11:42] LABS: Bedside Glucose 188 mg/dL (74-106)
[2023-04-26] MEDS: Insulin Lispro 100 UNIT/ML INSULN.PEN 7 UNIT SC ×2 (12:57→18:43)
[2023-04-26 15:53] VITALS: BP 119/61; PULSE 87; RESP 16; TEMP 36.3; O2SAT 96
[2023-04-26 17:19] LABS: Bedside Glucose 189 mg/dL (74-106)
[2023-04-26] MEDS: Atorvastatin Calcium 80 MG Tablet PO (22:02)
[2023-04-26] MEDS: Insulin Glargine-YFGN 100 UNIT/ML Pen 20 UNIT SC (22:02)
[2023-04-26 22:30] LABS: Bedside Glucose 161 mg/dL (74-106)
[2023-04-27] MEDS: Acetaminophen 500 MG Tablet 1000 MG PO ×3 (05:52→22:17)
[2023-04-27] MEDS: hydroCHLOROthiazide 12.5mg 12.5 MG PO (05:53)
[2023-04-27] MEDS: Empagliflozin 10 MG Tablet PO (05:54)
[2023-04-27] MEDS: Enoxaparin 40 MG/0.4 ML Syringe SC (05:54)
[2023-04-27] MEDS: Cilostazol 50 MG Tablet PO ×2 (05:54→17:18)
[2023-04-27] MEDS: Lisinopril 5 MG Tablet PO (05:54)
[2023-04-27] MEDS: PARoxetine 10 MG Tablet PO (05:55)
[2023-04-27] MEDS: Senna/Docusate Sodium 1 Tablet 2 TABLET PO ×2 (05:56→17:16)
[2023-04-27] MEDS: amLODIPine 5 MG Tablet PO (05:56)
[2023-04-27] MEDS: Nystatin Powder 15gm Bottle 1 APPLIC TOPICAL ×2 (05:57→17:20)
[2023-04-27] MEDS: Cholecalciferol (VIT D3) 25 MCG TABLET (1,000 UNITS) PO (05:57)
[2023-04-27] MEDS: Menthol/Lanolin/Calamine/Znox 113 GM Tube 1 APPLIC TOPICAL ×2 (05:58→17:18)
[2023-04-27 07:17] LABS: Bedside Glucose 88 mg/dL (74-106)
[2023-04-27] MEDS: Multivitamins,Therapeutic Tablet 1 TABLET PO (08:10)
[2023-04-27] MEDS: Insulin Lispro 100 UNIT/ML INSULN.PEN 7 UNIT SC ×3 (08:14→17:16)
[2023-04-27 08:45] VITALS: PULSE 99; RESP 18; O2SAT 92
[2023-04-27 10:46] LABS: Bedside Glucose 108 mg/dL (74-106)
[2023-04-27 14:04] VITALS: BP 106/44; PULSE 82; RESP 18; TEMP 36.2; O2SAT 93
[2023-04-27 16:28] LABS: Bedside Glucose 108 mg/dL (74-106)
[2023-04-27 21:47] LABS: Bedside Glucose 122 mg/dL (74-106)
[2023-04-27] MEDS: Atorvastatin Calcium 80 MG Tablet PO (22:17)
[2023-04-27] MEDS: Insulin Glargine-YFGN 100 UNIT/ML Pen 20 UNIT SC (22:18)
[2023-04-28] MEDS: Acetaminophen 500 MG Tablet 1000 MG PO ×3 (05:06→21:34)
[2023-04-28] MEDS: Cilostazol 50 MG Tablet PO ×2 (05:07→18:01)
[2023-04-28] MEDS: amLODIPine 5 MG Tablet PO (05:07)
[2023-04-28] MEDS: PARoxetine 10 MG Tablet PO (05:08)
[2023-04-28] MEDS: Lisinopril 5 MG Tablet PO (05:09)
[2023-04-28] MEDS: hydroCHLOROthiazide 12.5mg 12.5 MG PO (05:09)
[2023-04-28] MEDS: Enoxaparin 40 MG/0.4 ML Syringe SC (05:09)
[2023-04-28] MEDS: Empagliflozin 10 MG Tablet PO (05:09)
[2023-04-28] MEDS: Cholecalciferol (VIT D3) 25 MCG TABLET (1,000 UNITS) PO (05:09)
[2023-04-28] MEDS: Menthol/Lanolin/Calamine/Znox 113 GM Tube 1 APPLIC TOPICAL ×2 (05:10→18:02)
[2023-04-28] MEDS: Nystatin Powder 15gm Bottle 1 APPLIC TOPICAL ×2 (05:11→18:02)
[2023-04-28 05:23] VITALS: BP 126/50; PULSE 90
[2023-04-28 06:34] LABS: Bedside Glucose 112 mg/dL (74-106)
[2023-04-28] MEDS: Multivitamins,Therapeutic Tablet 1 TABLET PO (08:36)
[2023-04-28] MEDS: Insulin Lispro 100 UNIT/ML INSULN.PEN 7 UNIT SC ×3 (08:37→18:05)
[2023-04-28 11:09] LABS: Bedside Glucose 193 mg/dL (74-106)
[2023-04-28 11:10] VITALS: PULSE 68; RESP 18; O2SAT 97
[2023-04-28 13:57] VITALS: BP 116/45; PULSE 80; RESP 16; TEMP 36.2; O2SAT 96
[2023-04-28 16:26] LABS: Bedside Glucose 222 mg/dL (74-106)
[2023-04-28] MEDS: Senna/Docusate Sodium 1 Tablet 2 TABLET PO (18:01)
[2023-04-28] MEDS: Atorvastatin Calcium 80 MG Tablet PO (19:57)
[2023-04-28 21:22] LABS: Bedside Glucose 171 mg/dL (74-106)
[2023-04-28] MEDS: Insulin Glargine-YFGN 100 UNIT/ML Pen 20 UNIT SC (21:34)
[2023-04-29 05:50] VITALS: BP 119/55; PULSE 82
[2023-04-29] MEDS: Menthol/Lanolin/Calamine/Znox 113 GM Tube 1 APPLIC TOPICAL ×2 (05:54→17:00)
[2023-04-29] MEDS: Enoxaparin 40 MG/0.4 ML Syringe SC (05:55)
[2023-04-29] MEDS: Senna/Docusate Sodium 1 Tablet 2 TABLET PO ×2 (05:56→17:00)
[2023-04-29] MEDS: PARoxetine 10 MG Tablet PO (05:56)
[2023-04-29] MEDS: Nystatin Powder 15gm Bottle 1 APPLIC TOPICAL ×2 (05:56→17:00)
[2023-04-29] MEDS: Cholecalciferol (VIT D3) 25 MCG TABLET (1,000 UNITS) PO (05:56)
[2023-04-29] MEDS: Acetaminophen 500 MG Tablet 1000 MG PO ×3 (05:56→21:28)
[2023-04-29] MEDS: Empagliflozin 10 MG Tablet PO (05:56)
[2023-04-29] MEDS: Cilostazol 50 MG Tablet PO ×2 (05:56→17:00)
[2023-04-29] MEDS: amLODIPine 5 MG Tablet PO (05:57)
[2023-04-29] MEDS: Lisinopril 5 MG Tablet PO (05:57)
[2023-04-29] MEDS: hydroCHLOROthiazide 12.5mg 12.5 MG PO (05:57)
[2023-04-29 06:41] LABS: Bedside Glucose 117 mg/dL (74-106)
[2023-04-29] MEDS: Multivitamins,Therapeutic Tablet 1 TABLET PO (08:09)
[2023-04-29] MEDS: Insulin Lispro 100 UNIT/ML INSULN.PEN 7 UNIT SC ×3 (08:09→16:57)
--- NOTE | 2023-04-29 09:46 | MDS.RN ---
Information for the mds was obtained from review of the clinical record, interview of resident, staff, and direct observation of resident's care.
[2023-04-29 11:17] LABS: Bedside Glucose 128 mg/dL (74-106)
[2023-04-29 13:43] VITALS: BP 98/54; PULSE 90; RESP 16; TEMP 36.8; O2SAT 96
--- NOTE | 2023-04-29 14:20 | CASEMGMT ---
Social Work Insurance issued [employer] with last covered day 05/01 and discharge 05/02. Team is recommending home health services PT/OT/ST/SN. SW met with Pt and explained discharge. Pt feels she is ready to return home. Phone call to pt spouse who is in agreement with d/c on and states he will be able to find someone to provide transportation home. A list of [facility] providers including quality and resource use data and consistent with the patient's preferred geographic region, medical needs and insurance network. Both pt and spouse agreeable to home health care but refusing to choose a provider stating they are indifferent. Referral to [facility] and they are able to accept with Start of Care on Saturday. Pt has needed DME. Discharge Date: 05/02/23 Discharge Disposition: Home with spouse and [facility] PT/OT/ST/SN ALEJANDRO Bailey
[2023-04-29 16:52] LABS: Bedside Glucose 125 mg/dL (74-106)
--- NOTE | 2023-04-29 18:43 | DS.PCM_ITS ---
Providers Date of Admission: 04/16/23 Primary Care Physician: Dr. Jose Rutledge, DO Reason For Visit: RIGHT FEMER FRACTURE Diagnosis Discharge Diagnosis (1) Debility: Status: Acute Code(s): R53.81 - Other malaise (2) Fall: Status: Acute Code(s): W19.XXXA - Unspecified fall, initial encounter (3) Closed right hip fracture: Status: Acute Code(s): S72.001A - Fracture of unspecified part of neck of right femur, initial encounter for closed fracture (4) Diabetes mellitus: Status: Acute Code(s): E11.9 - Type 2 diabetes mellitus without complications (5) Hypertension: Status: Chronic Code(s): I10 - Essential (primary) hypertension (6) Anxiety: Status: Acute Code(s): F41.9 - Anxiety disorder, unspecified (7) Memory loss: Status: Acute Code(s): R41.3 - Other amnesia Plan 73 year old female with below past medical history hospitalized for right hip fracture, underwent right hip intramedullary nail fixation 04/03/2023, complicated by memory loss, admitted to TCU with debility, here for rehabilitation, strengthening, prior to discharge home with . * Debility - PT/OT. * Pain - Tylenol 1000mg tid, Oxycodone 5mg q4h prn pain (6-10) * Bowel - Miralax 17gm daily, senna/colace 2 tablets bid, Magnesium citrate 300ml po daily prn. * Adult immunization - Administer pneumonia vaccine, covid19 vaccine, flu vacci ne as appropriate. * DVT prophylaxis - Lovenox 40mg sc daily thru 05/04/2023. * Hypertension - Lisinopril 5mg daily, HCTZ 12.5mg daily, Amlodipine 5mg daily. * Hyperlipidemia - Atorvastatin 80mg qhs. * PAOD - Pletal 50mg bid. * Diabetes Mellitus II - Glargine 24 units qhs, Lispro 10units tidcm, Jardiance 10mg daily. * Insomnia - Melatonin 3mg qhs prn. * Skin irritation - Calmoseptine topical bid. * Nutrition - MVI 1 daily. * Tinea Corporis - Nystatin powder topical bid. * Nausea - Zofran 4mg q8h prn. * Anxiety - Paxil 10mg daily * Vitamin D deficiency - D3 25mcg daily. Medications at Discharge Home Medications acetaminophen 500 mg tablet 1,000 mg PO TID pain 04/16/23 amlodipine 5 mg tablet 5 mg PO DAILY heart 04/16/23 cholecalciferol (vitamin D3) 25 mcg (1,000 unit) capsule 25 mcg PO DAILY supplement 04/16/23 cilostazol 50 mg tablet 50 mg PO BID blood 04/16/23 dapagliflozin propanediol 10 mg tablet (Farxiga) 10 mg PO DAILY diabetes 04/16/23 enoxaparin 40 mg/0.4 mL subcutaneous syringe 40 mg subcut Q12H blood thinner 04/16/23 hydrochlorothiazide 12.5 mg tablet 12.5 mg PO DAILY blood pressure 04/16/23 lisinopril 5 mg tablet 5 mg PO DAILY heart 04/16/23 melatonin 3 mg tablet 3 mg PO QHS PRN sleep 04/16/23 multivitamin (Multiple Vitamins tablet) 1 tab PO DAILY supplement 04/16/23 rosuvastatin 40 mg tablet (Crestor) 40 mg PO QHS cholesterol 04/16/23 acetaminophen 500 mg tablet 1,000 mg (2 x 500 mg) PO TID #0 tabs 04/29/23 insulin glargine 100 unit/mL (3 mL) subcutaneous pen 20 unit (0.2 mL) subcut QHS 30 days #6 mL 04/29/23 insulin glargine-yfgn 100 unit/mL (3 mL) subcutaneous pen 20 unit (0.2 mL) subcut QHS 30 days #6 mL 04/29/23 insulin lispro 100 unit/mL subcutaneous pen 7 unit (0.07 mL) subcut TID 30 days #7 mL 04/29/23 insulin lispro 100 unit/mL subcutaneous pen (Humalog KwikPen (U-100) Insulin) 7 unit (0.07 mL) subcut TIDCM 30 days #7 mL 04/29/23 paroxetine HCl 10 mg tablet 10 mg PO DAILY #30 tabs 04/29/23 paroxetine HCl 10 mg tablet 10 mg PO DAILY 30 days #30 tabs 04/29/23 Hospital Course Operations - (See below.) Procedures None Summary of Care Provided Minutes Spent on Discharge: 35 Hospital Course: 73 year old female with below past medical history hospitalized for right hip fracture, underwent right hip intramedullary nail fixation 04/03/2023, complicated by memory loss, admitted to TCU with debility, here for rehabi litation, strengthening, prior to discharge home with . Discharge home with 05/02/2023, [facility] PT/OT/ST/SN. Consider evaluation for memory loss. Physical Exam Const alert General Appearance: cooperative HEENT normocephalic Eyes PERRL and EOMs intact bilaterally Neck supple, no JVD and no carotid bruits Resp normal respiratory effort, normal air movement and clear to auscultation bilaterally Cardio regular rate and regular rhythm GI normal to inspection, nondistended, normoactive bowel sounds, non-tender and non-distended Extremity normal capillary refill General Extremity: Negative for edema Skin no rashes or lesions noted General Skin Exam: no breakdown Psych affect normal Appearance: appropriate Weight / BMI Weight Weight: 69.808 kg Body Mass Index (BMI) 30.0 ABG / Lab / Microbiology Data 04/24/23 05:20 04/24/23 05:20 Laboratory: Laboratory Results - last 24 hr 04/28/23 21:02: POC Glucose 171 H 04/29/23 06:20: POC Glucose 117 H 04/29/23 10:59: POC Glucose 128 H 04/29/23 16:34: POC Glucose 125 H D/C Instructions Discharge Diet: No restrictions Discharge Activity: Return to Normal Activity, May Shower and Use Walker Weight Bearing Status: Weight bearing as tolerated Call your doctor if you observe: Fever of 101 or Higher, Inability to urinate, Inability to have a bowel movement, Shortness of breath, Dizziness, Fainting spells, Swelling in the ankles, Chest pain and Uncontrolled pain Additional Instructions: Discharge home with 05/02/2023, [facility] PT/OT/ST/SN. Consider evaluation for memory loss. Please Follow Up With: Dr. Mark Campa MD When: As scheduled. Meaningful Use Info Meaningful Use Diagnoses (Choose all that apply): None applicable Discharge Plan Admission Admit Date/Time: 04/16/23 13:34 Primary Reason for Your Visit: Debility. Attending Provider: Christian Fu Chi Primary Care Provider: Jose Rutledge Instructions Additional Instructions / Restrictions: Discharge home with 05/02/2023, [facility] PT/OT/ST/SN. Consider evaluation for memory loss. Discharge Orders/Prescriptions Prescriptions: New acetaminophen 500 mg Tablet 1,000 mg PO TID Qty: 0 0RF insulin glargine-yfgn 100 unit/mL (3 mL) Insulin Pen 20 unit subcut QHS 30 Days Qty: 6 0RF insulin lispro [Humalog KwikPen Insulin] 100 unit/mL Insulin Pen 7 unit subcut TIDCM 30 Days Qty: 7 0RF paroxetine HCl 10 mg Tablet 10 mg PO DAILY 30 Days Qty: 30 0RF insulin glargine 100 unit/mL (3 mL) insulin pen 20 unit subcut QHS 30 Days Qty: 6 0RF insulin lispro 100 unit/mL insulin pen 7 unit subcut TID 30 Days Qty: 7 0RF paroxetine HCl 10 mg tablet 10 mg PO DAILY Qty: 30 0RF Continued cholecalciferol (vitamin D3) 25 mcg (1,000 unit) capsule 25 mcg PO DAILY cilostazol 50 mg tablet 50 mg PO BID Farxiga 10 mg tablet 10 mg PO DAILY hydrochlorothiazide 12.5 mg tablet 12.5 mg PO DAILY lisinopril 5 mg tablet 5 mg PO DAILY melatonin 3 mg tablet 3 mg PO QHS PRN (Reason: sleep) multivitamin [Multiple Vitamins] Tablet 1 tab PO DAILY amlodipine 5 mg tablet 5 mg PO DAILY rosuvastatin [Crestor] 40 mg tablet 40 mg PO QHS Discontinued insulin glargine [Basaglar KwikPen U-100 Insulin] 100 unit/mL (3 mL) insulin pen 24 unit subcut QHS insulin lispro 100 unit/mL insulin pen 10 unit subcut TID Rx Instructions: TID w/ meals ondansetron 4 mg tablet,disintegrating 4 mg PO Q8H PRN (Reason: nausea and vomiting) oxycodone 5 mg tablet 5 mg PO Q6H PRN (Reason: pain) Rx Instructions: pain 7-10 paroxetine HCl 10 mg tablet 10 mg PO DAILY polyethylene glycol 3350 [Miralax] 17 gram powder in packet 17 g PO DAILY PRN (Reason: constipation) No Action acetaminophen 500 mg tablet 1,000 mg PO TID enoxaparin 40 mg/0.4 mL syringe 40 mg subcut Q12H Referrals / Follow Up: Jose Rutledge DO [Primary Care Provider] - 05/10/23 1:30 pm (pt sees Michelle Fernandez instead of Dr Rutledge) Disposition Disposition (needs filled in before D/C Order can be placed): Home Health Service
[2023-04-29] MEDS: Insulin Glargine-YFGN 100 UNIT/ML Pen 20 UNIT SC (21:28)
[2023-04-29] MEDS: Atorvastatin Calcium 80 MG Tablet PO (21:28)
[2023-04-29 21:50] LABS: Bedside Glucose 137 mg/dL (74-106)
[2023-04-29 22:43] VITALS: PULSE 66; RESP 16; O2SAT 99
[2023-04-30] MEDS: Cilostazol 50 MG Tablet PO ×2 (05:50→17:06)
[2023-04-30] MEDS: Senna/Docusate Sodium 1 Tablet 2 TABLET PO ×2 (05:50→17:06)
[2023-04-30] MEDS: Lisinopril 5 MG Tablet PO (05:50)
[2023-04-30] MEDS: Enoxaparin 40 MG/0.4 ML Syringe SC (05:50)
[2023-04-30] MEDS: Empagliflozin 10 MG Tablet PO (05:50)
[2023-04-30] MEDS: Cholecalciferol (VIT D3) 25 MCG TABLET (1,000 UNITS) PO (05:50)
[2023-04-30] MEDS: amLODIPine 5 MG Tablet PO (05:50)
[2023-04-30] MEDS: Acetaminophen 500 MG Tablet 1000 MG PO ×3 (05:50→22:21)
[2023-04-30] MEDS: hydroCHLOROthiazide 12.5mg 12.5 MG PO (05:50)
[2023-04-30] MEDS: PARoxetine 10 MG Tablet PO (05:50)
[2023-04-30] MEDS: Menthol/Lanolin/Calamine/Znox 113 GM Tube 1 APPLIC TOPICAL ×2 (05:51→17:05)
[2023-04-30] MEDS: Nystatin Powder 15gm Bottle 1 APPLIC TOPICAL ×2 (06:00→17:05)
[2023-04-30 06:57] LABS: Bedside Glucose 95 mg/dL (74-106)
[2023-04-30] MEDS: Multivitamins,Therapeutic Tablet 1 TABLET PO (08:11)
[2023-04-30 11:38] VITALS: BMI 29.7
[2023-04-30] MEDS: Insulin Lispro 100 UNIT/ML INSULN.PEN SC ×2 (13:32→17:04)
[2023-04-30 16:00] VITALS: BP 99/41; PULSE 76; RESP 16; TEMP 37.1; O2SAT 97
--- NOTE | 2023-04-30 16:23 | CASEMGMT ---
SocialWork List of private duty aids provided to pt if additional assistance is needed in the home. Therapy recommending raised toilet seat. Phone call to pt who confirms this is already in place. ALEJANDRO Bailey
[2023-04-30 16:51] LABS: Bedside Glucose 147 mg/dL (74-106)
[2023-04-30 16:53] LABS: Bedside Glucose 134 mg/dL (74-106)
[2023-04-30 22:00] LABS: Bedside Glucose 112 mg/dL (74-106)
[2023-04-30] MEDS: Insulin Glargine-YFGN 100 UNIT/ML Pen 15 UNIT SC (22:21)
[2023-04-30] MEDS: Atorvastatin Calcium 80 MG Tablet PO (22:21)
[2023-05-01 05:40] LABS: Absolute Lymphocyte Count 1.46 X10^3/uL (0.83-4.51); Basophil# 0.03 X10^3/uL; Basophil% 0.6 % (0-1); Eosinophil# 0.08 X10^3/uL; Eosinophils% 1.7 % (0-5); Hematocrit 38.7 % (37-47); Hemoglobin 12.6 g/dL (12.0-15.0); Lymphocyte # 1.46 X10^3/ul (0.83-4.51); Lymphocyte % 30.2 % (19-41); Mean Corp Hgb Conc 32.6 g/dL (32-36); Mean Corpuscular Hgb 30.1 pg (27.0-32.0); Mean Corpuscular Volume 92.6 fL (81-99); Mean Platelet Vol. 10.2 fl (6.2-12.0); Monocyte# 0.32 X10^3/uL; Monocyte% 6.6 % (0-10); NRBC Flagged by Analyzer 0 % (0-5); Neutrophil # 2.95 X10^3/uL (2.7-7.7); Neutrophil % 60.9 % (47-70); Platelet Count 200 K/mm3 (150-450); RBC Distribution Width CV 14.1 % (11.6-14.6); RBC Distribution Width SD 47.9 fl (35.1-43.9); Red Blood Count 4.18 M/mm3 (4.2-5.4); White Blood Count 4.8 K/mm3 (4.4-11.0)
[2023-05-01 06:05] LABS: Anion Gap 5 (5-15); BUN 14 mg/dL (7-18); BUN/Creat Ratio 30.4 RATIO (10-20); Calcium,Total 9.1 mg/dL (8.5-10.1); Chloride 107 mmol/L (98-107); Creatinine, Serum 0.46 mg/dL (0.55-1.02); EST Glomerular Filtration Rate 141 mL/min (>60); Est Glom Filt Rate - Afr Amer 170 mL/min (>60); Estimated Creatinine Clearance 34.91 ml/min; Glucose 119 mg/dL (74-106); Potassium 3.5 mmol/L (3.5-5.1); Sodium Level 140 mmol/L (136-145)
[2023-05-01] MEDS: Cholecalciferol (VIT D3) 25 MCG TABLET (1,000 UNITS) PO (06:06)
[2023-05-01] MEDS: Empagliflozin 10 MG Tablet PO (06:06)
[2023-05-01] MEDS: PARoxetine 10 MG Tablet PO (06:06)
[2023-05-01] MEDS: Cilostazol 50 MG Tablet PO ×2 (06:06→17:52)
[2023-05-01] MEDS: Acetaminophen 500 MG Tablet 1000 MG PO ×3 (06:07→20:30)
[2023-05-01] MEDS: Enoxaparin 40 MG/0.4 ML Syringe SC (06:08)
[2023-05-01] MEDS: amLODIPine 5 MG Tablet PO (06:08)
[2023-05-01] MEDS: hydroCHLOROthiazide 12.5mg 12.5 MG PO (06:08)
[2023-05-01] MEDS: Lisinopril 5 MG Tablet PO (06:08)
[2023-05-01] MEDS: Nystatin Powder 15gm Bottle 1 APPLIC TOPICAL ×2 (06:12→17:56)
[2023-05-01] MEDS: Menthol/Lanolin/Calamine/Znox 113 GM Tube 1 APPLIC TOPICAL ×2 (06:13→17:57)
[2023-05-01 06:28] LABS: Bedside Glucose 121 mg/dL (74-106)
[2023-05-01] MEDS: Insulin Lispro 100 UNIT/ML INSULN.PEN SC ×3 (07:44→17:52)
[2023-05-01] MEDS: Multivitamins,Therapeutic Tablet 1 TABLET PO (07:45)
--- NOTE | 2023-05-01 09:43 | NURSING ---
Dr. Rutledge no longer PCP at office and patient to see Michelle Fernandez NP. Office contacted regarding PN vaccine status and confirm only PN vaccine was Prevnar 13 in 2020. Patient agrees to receive Prevnar 20 before D/C.
[2023-05-01 11:58] LABS: Bedside Glucose 122 mg/dL (74-106)
--- NOTE | 2023-05-01 13:25 | CHAPLAIN ---
Type of Pastoral Visit ___ Initial Visit _x__ Follow-up Visit ___ On-call Visit ___ General Patient Visit ___ Spiritual Assessment ___ Family Conference ___ Bereavement ___ Rapid Response ___ Code Blue ___ Other (describe below) Pastoral Care Referral From _x__ Patient ___ Family ___ Nurse ___ Physician ___ Dupligraph Operator ___ Rubber [employer]s And Shoes Repairer ___ Other (describe below) Sacrament/Intervention _x__ Active listening ___ Anointing ___ Scientology ___ Bereavement ___ Communion ___ Halley exploration ___ _x__ Life review _x__ Prayer ___ Reconciliation ___ Sacrament of Sick ___ Supportive presence ___ Wedding ___ Other (describe below) Pastoral Comments patient speaks of progress and returning home tomorrow; pt expresses thankfulness for care in TCU and also looking forward to returning to who needs me; pt presents with a positive attitude and welcomes a prayer for extra support today
--- NOTE | 2023-05-01 13:35 | CASEMGMT ---
Social Work BIMS (02/21) and PHQ-9 (10/05) completed for MDS assessment. Adelia Gipson MSW [employer] DEVELOPER
[2023-05-01 15:38] VITALS: BP 114/49; PULSE 80; RESP 14; TEMP 37.2; O2SAT 96
[2023-05-01 17:04] LABS: Bedside Glucose 147 mg/dL (74-106)
[2023-05-01] MEDS: Atorvastatin Calcium 80 MG Tablet PO (20:32)
[2023-05-01 21:40] LABS: Bedside Glucose 126 mg/dL (74-106)
[2023-05-01] MEDS: Insulin Glargine-YFGN 100 UNIT/ML Pen 15 UNIT SC (22:22)
[2023-05-01 23:00] VITALS: PULSE 71; RESP 16; O2SAT 95
[2023-05-02] MEDS: Acetaminophen 500 MG Tablet 1000 MG PO (05:10)
[2023-05-02] MEDS: Cilostazol 50 MG Tablet PO (05:11)
[2023-05-02] MEDS: hydroCHLOROthiazide 12.5mg 12.5 MG PO (05:11)
[2023-05-02] MEDS: Cholecalciferol (VIT D3) 25 MCG TABLET (1,000 UNITS) PO (05:11)
[2023-05-02] MEDS: PARoxetine 10 MG Tablet PO (05:11)
[2023-05-02] MEDS: Senna/Docusate Sodium 1 Tablet 2 TABLET PO (05:11)
[2023-05-02] MEDS: amLODIPine 5 MG Tablet PO (05:11)
[2023-05-02] MEDS: Empagliflozin 10 MG Tablet PO (05:11)
[2023-05-02] MEDS: Enoxaparin 40 MG/0.4 ML Syringe SC (05:11)
[2023-05-02] MEDS: Lisinopril 5 MG Tablet PO (05:11)
[2023-05-02] MEDS: Nystatin Powder 15gm Bottle 1 APPLIC TOPICAL (05:14)
[2023-05-02] MEDS: Menthol/Lanolin/Calamine/Znox 113 GM Tube 1 APPLIC TOPICAL (05:14)
[2023-05-02 06:36] LABS: Bedside Glucose 112 mg/dL (74-106)
[2023-05-02] MEDS: Insulin Lispro 100 UNIT/ML INSULN.PEN SC (07:55)
[2023-05-02] MEDS: Multivitamins,Therapeutic Tablet 1 TABLET PO (07:55)
[2023-05-02] MEDS: Pneumococcal Vaccine 20 Valent 0.5 ML Syringe IM (10:28)
[2023-05-02 11:23] LABS: Bedside Glucose 191 mg/dL (74-106)
[2023-05-02 12:29] VITALS: BP 117/59; PULSE 80; RESP 16; TEMP 36.4; O2SAT 97
== END 2023-05-02 12:20 | disposition home health service (06) | DRG 561 ==
PROVIDERS: Admitting Provider Family Medicine Geriatric Medicine; PCP Family Medicine; Visit Provider Family Medicine Geriatric Medicine
DX: S72.001D Fracture of unspecified part of neck of right femur, subsequent encounter for closed fracture with routine healing (principal); E11.51 Type 2 diabetes mellitus with diabetic peripheral angiopathy without gangrene; E55.9 Vitamin D deficiency, unspecified; F17.200 Nicotine dependence, unspecified, uncomplicated; B35.4 Tinea corporis; Z79.4 Long term (current) use of insulin; I10 Essential (primary) hypertension; F41.9 Anxiety disorder, unspecified; W17.89XD Other fall from one level to another, subsequent encounter; Z79.01 Long term (current) use of anticoagulants; R41.3 Other amnesia; Z79.02 Long term (current) use of antithrombotics/antiplatelets; Z79.899 Other long term (current) drug therapy; Z23 Encounter for immunization
CPT/HCPCS: 36415; 73552; 80048; 82962; 85025; 90677; 92507; 92523; 97110; 97116; 97129; 97130; 97162; 97166; 97530; 97535; 97802; G0009

== ENCOUNTER 2024-03-04 21:30 | Inpatient (IN) | payer MEDICARE, SELFPAY ==
[2024-03-04 21:54] VITALS: BP 145/71; PULSE 83; RESP 17; TEMP 36.1; O2SAT 97; BMI 23.9
[2024-03-04 22:33] LABS: Bedside Glucose 240 mg/dL (74-106)
[2024-03-04] MEDS: Potassium Chloride Oral Tablet 10 MEQ PO (23:27)
[2024-03-04] MEDS: Cilostazol 50 MG Tablet PO (23:27)
[2024-03-04] MEDS: Atorvastatin Calcium 80 MG Tablet PO (23:27)
[2024-03-04] MEDS: AMOXICILLIN 500 MG CAPSULE PO (23:27)
[2024-03-05] MEDS: AMOXICILLIN 500 MG CAPSULE PO ×3 (05:20→20:46)
[2024-03-05] MEDS: Enoxaparin 40 MG/0.4 ML Syringe SC (05:20)
[2024-03-05 05:21] LABS: Erythrocyte Sedimentation Rate 20 mm/hr (0-30)
[2024-03-05 05:23] LABS: Absolute Lymphocyte Count 1.53 X10^3/uL (0.83-4.51); Absolute Neutrophil Count 3.1 X10^3/uL (2.0-7.7); Basophil# 0.03 X10^3/uL; Basophil% 0.6 % (0-1); Eosinophil# 0.11 X10^3/uL; Eosinophils% 2.1 % (0-5); Hematocrit 37.5 % (37-47); Hemoglobin 12.7 g/dL (12.0-15.0); Lymphocyte # 1.53 X10^3/ul (0.83-4.51); Lymphocyte % 29.7 % (19-41); Mean Corp Hgb Conc 33.9 g/dL (32-36); Mean Corpuscular Hgb 29.9 pg (27.0-32.0); Mean Corpuscular Volume 88.2 fL (81-99); Monocyte# 0.37 X10^3/uL; Monocyte% 7.2 % (0-10); NRBC Flagged by Analyzer 0 % (0-5); Neutrophil # 3.11 X10^3/uL (2.7-7.7); Neutrophil % 60.2 % (47-70); Platelet Count 187 K/mm3 (150-450); RBC Distribution Width CV 13.2 % (11.6-14.6); RBC Distribution Width SD 42.8 fl (35.1-43.9); Red Blood Count 4.25 M/mm3 (4.2-5.4); White Blood Count 5.2 K/mm3 (4.4-11.0)
[2024-03-05 05:51] LABS: ALB/GLOB Ratio 0.8 RATIO (0.9-2.4); AST(SGOT) 22 U/L (15-37); Alanine Aminotransfer ALT/SGPT 13 U/L (13-56); Albumin, Serum 2.6 g/dL (3.2-5.0); Alkaline Phosphatase 89 U/L (45-117); Anion Gap 5 (5-15); BUN 15 mg/dL (7-18); BUN/Creat Ratio 41.8 RATIO (10-20); CRP < 2.90 mg/L (0.0-3.0); Calcium,Total 8.8 mg/dL (8.5-10.1); Chloride 109 mmol/L (98-107); Creatinine, Serum 0.36 mg/dL (0.55-1.02); EST Glomerular Filtration Rate 187 mL/min (>60); Est Glom Filt Rate - Afr Amer 226 mL/min (>60); Estimated Creatinine Clearance 53.83 ml/min; Globulin 3.4 g/dL (2.2-4.2); Glucose 179 mg/dL (74-106); Magnesium 1.7 mg/dL (1.6-2.6); Phosphorus 3.2 mg/dL (2.5-4.9); Potassium 3.6 mmol/L (3.5-5.1); Sodium Level 139 mmol/L (136-145)
[2024-03-05 07:10] VITALS: O2SAT 94
[2024-03-05 07:20] LABS: Bedside Glucose 178 mg/dL (74-106)
[2024-03-05 07:38] VITALS: BP 125/49; PULSE 74; RESP 16; TEMP 36.7; O2SAT 94
[2024-03-05] MEDS: Insulin Human 75/25 Kwickpen 15 UNIT SC ×2 (08:16→17:20)
[2024-03-05] MEDS: Potassium Chloride Oral Tablet 10 MEQ PO ×2 (08:17→20:47)
[2024-03-05] MEDS: Senna/Docusate Sodium 1 Tablet 2 TABLET PO ×2 (08:17→20:45)
[2024-03-05] MEDS: Aspirin E.C. 81 MG Tablet PO (08:17)
[2024-03-05] MEDS: Insulin Lispro 100 UNIT/ML INSULN.PEN SC ×3 (08:17→17:21)
[2024-03-05] MEDS: Multivitamins,Therapeutic Tablet 1 TABLET PO (08:18)
[2024-03-05] MEDS: PARoxetine 10 MG Tablet 15 MG PO (08:18)
[2024-03-05] MEDS: Cholecalciferol (VIT D3) 25 MCG TABLET (1,000 UNITS) 50 MCG PO (08:18)
[2024-03-05] MEDS: Cilostazol 50 MG Tablet PO ×2 (08:18→20:46)
[2024-03-05] MEDS: Calcium Carbonate 500 MG Tablet PO ×2 (08:19→20:46)
[2024-03-05] MEDS: amLODIPine 5 MG Tablet PO (08:19)
--- NOTE | 2024-03-05 10:37 | EX.PCM.HP.RE ---
HPI - General General Date of Admission: 03/04/24 Date of Service: 03/05/24 Chief Complaint: Post stroke debility HPI Narrative CELIA TUCKER, is a 74 YO F with a PMH of DM, HTN, HLD, chronic back pain, degenerative disc disease, chronic combined systolic and diastolic congestive heart failure with a left ventricular ejection fraction estimated at 35 to 40%,diabetic polyneuropathy, osteoporosis, PVD, depression, tobacco dependence and IBS who presented to the ED at [facility] on 03/01/2024 by squad with hypoglycemia, hypothermia and cognitive impairment. She became more alert at IV glucose but, she was still confused. The ED doc noted that she was seen in January for possible stroke and she was confused at that time as well. She was managing her own medications at home and living independently with her . Lab showed a low potassium at 2.4. Lactic acid was elevated at 2.5. She was treated with IV fluids and IV potassium. Blood cultures, UA with PHYSICAL SECURITY SPECIALIST, CT of the head, CXR and EKG were ordered. The head CT was reported as no acute pathology. There was mild to moderate volume loss with scattered hypodensities throughout the periventricular white matter most likely consistent with chronic small vessel angiopathy. Chest x-ray showed hazy interstitial and alveolar opacities throughout the lungs bilaterally. The urine had 10-15 white blood cells per high-power field with 1+ bacteria. She was given 1 g of IV Rocephin in the emergency department. Urine culture grew Enterococcus faecalis which was sensitive to penicillin and she was started on amoxicillin 500 mg 3 times daily. On 03/02/2024 the blood cultures were growing gram-positive cocci in clusters. We did not receive a final report on the blood cultures. Therapy noted R leg weakness, right-sided neglect and foot drop. She had an MRI of the brain on 03/02 and it showed. A small chronic lacunar infarct in the right basal ganglia which was not seen on an MRI done 01/21/2024 at [facility]. While at [facility] she was seen by therapy and acute inpt rehab was recommended at [place]. She was transferred to the acute inpt rehab unit at [facility] on 03/04/24 for 3 hours of therapy daily to restore function/independence at or near or level prior to recent CVA. It is clear from reading the documentation from the previous hospital that she is confused at baseline and not capable of managing her medications. The EMR from [facility] was reviewed. She was admitted to the transitional care unit on 04/16/2023 after having multiple falls at home ultimately resulting in a right hip fracture for which she was seen at [facility]. She underwent a right intramedullary nail fixation of the right hip. Memory loss was evident at that time. Afebrile VSS -blood pressure has ranged from 125/49 to 145/71 since admission to rehab. Heart rate is within normal limits. Maintaining appropriate oxygen saturation on RA Oral intake - FOOD good FLUIDS poor Weight today is 143 pounds and 15 ounces She is incontinent of urine. Postvoid residual x 2 have both been over 200. Discussed with nursing - no problems that need addressed Reviewed the THERAPY notes Medication list reviewed. She denies pain, SOB, lightheadedness, N/V/abd pain, dysuria. She is c/o pain in her legs (mikhail the calves). The pain gets worse with walking and is cramping........resolves with sitting down. Tells me that she thinks she could walk 1/2 block. does not get pain ambulating around her house. No pain in the legs when she is lying flat on the couch. [facility] Medical History (Updated 03/06/24 @ 11:[address] Nelly Gomes, DO) Irritable bowel syndrome Anxiety and depression Tobacco dependence due to cigarettes Osteoporosis Diabetic polyneuropathy Degenerative disc disease Chronic back pain Hyperlipidemia Dementia Peripheral vascular disease Chronic combined systolic and diastolic CHF (congestive heart failure) Cardiomyopathy Diabetes mellitus, type 2 Stroke/cerebrovascular accident Hypertension Closed right hip fracture Home Medications ?Medication ?Instructions ?Recorded ?Last Taken ?Type amlodipine 5 mg tablet 5 mg PO DAILY heart 04/16/23 Unknown History cilostazol 50 mg tablet 50 mg PO BID blood 04/16/23 04/15/23 History multivitamin (Multiple Vitamins 1 tab PO DAILY supplement 04/16/23 Unknown History tablet) rosuvastatin 40 mg tablet (Crestor) 40 mg PO QHS cholesterol 04/16/23 Unknown History amoxicillin 250 mg capsule 500 mg PO TID infection 03/04/24 Unknown History aspirin 81 mg tablet,delayed 81 mg PO DAILY stroke 03/04/24 Unknown History release (Adult Low Dose Aspirin) calcium carbonate (Calcium 500) 500 mg PO BID calcium 03/04/24 Unknown History cholecalciferol (vitamin D3) 50 50 mcg PO DAILY vitamin 03/04/24 Unknown History mcg (2,000 unit) capsule (D3-2000) paroxetine HCl 10 mg tablet (Paxil) 15 mg PO DAILY mood 03/04/24 Unknown History potassium chloride 10 mEq 10 meq PO BID supplement 03/04/24 Unknown History tablet,extended release (Klor-Con) Allergy/AdvReac Type Severity Reaction Status Date / Time isradipine (From DynaCirc) AdvReac Unknown PT UNSURE Verified 03/04/24 23:01 OF REACTION nabumetone (From Relafen) AdvReac Unknown PT UNSURE Verified 03/04/24 23:01 OF REACTION Family History (Updated 03/06/24 @ 11:[address] Nelly Gomes DO) Mother Alzheimer's dementia Hypertension Father COPD (chronic obstructive pulmonary disease) Diabetes Hypertension Heart disease Brother Diabetes Hypertension Heart disease Surgical History (Updated 03/06/24 @ 11:[address] Nelly Gomes DO) History of open reduction and internal fixation (ORIF) procedure History of hysterectomy Social History (Updated 03/06/24 @ 11:[address] Nelly Gomes DO) household members: spouse housing: house number of children: 1 pets and animals: Yes (Peanut) pets and animals: dog(s) Smoking Status: Light Smoker (<10/day) alcohol intake: never substance use type: does not use ROS Review of Systems ROS Unobtainable: other Details: Review of systems is very limited by moderate to severe dementia. Constitutional Constitutional: Denies anorexia or fever(s) Eyes Eyes: Denies blurry vision, double vision or eye pain ENT HEENT: Denies headache(s), nasal congestion or sore throat Cardiovascular Cardiovascular: Reports claudication; Denies chest pain, edema or orthopnea Respiratory/Chest Respiratory/Chest: Denies cough, shortness of breath at rest or shortness of breath with exertion Gastrointestinal Gastrointestinal: Reports constipation; Denies abdominal pain, diarrhea, nausea or vomiting Genitourinary Genitourinary: Reports urinary incontinence; Denies dysuria Musculoskeletal Musculoskeletal: Reports back pain, extremity pain and muscle weakness Integumentary Integumentary: Denies jaundice, rash or wounds Neurologic Neurologic: Reports confusion and weakness; Denies focal weakness, headache(s), numbness, seizures or tremor(s) Psychiatric Psychiatric: Reports anxiety and depression Endocrine Endocrinology: Denies change in body appearance Hematologic/Lymphatic Hematologic/Lymphatic: Reports easy bruising Vital Signs Vital Signs Vital Signs: 03/04/24 21:54 03/04/24 22:00 03/05/24 07:10 Temperature 97.0 F L Temperature Source Oral Pulse Rate 83 Respiratory Rate 17 Respiratory Effort Normal Non-Labored Respiratory Depth Normal Respiratory Pattern Normal Blood Pressure 145/71 H Blood Pressure Mean 95 Blood Pressure Source Monitor Blood Pressure Position Semi-Fowlers Blood Pressure Location Right Arm Pulse Ox 97 94 Oxygen Delivery Method Room Air Room Air Room Air 03/05/24 07:38 Temperature 98.0 F Temperature Source Temporal Pulse Rate 74 Respiratory Rate 16 Respiratory Effort Respiratory Depth Respiratory Pattern Blood Pressure 125/49 H Blood Pressure Mean 74 Blood Pressure Source Monitor Blood Pressure Position Semi-Fowlers Blood Pressure Location Right Arm Pulse Ox 94 Oxygen Delivery Method Room Air Weight Weight: 143 lb 15.39 oz Body Mass Index (BMI) 23.9 Indicators for Scoring Admitted with or Primary Diagnosis of CVA/Stroke: Yes Hx of CVA/Stroke: No Modified Stephen Score MRS Score at time of Evaluation: 4-Moderate/severe disability NIHSS NIHSS 1a. Level of Consciousness: Alert; keenly responsive 1b. LOC Questions: Answers one question correctly. 1c. LOC Commands: Performs both tasks correctly. 2. Best Gaze: Normal 3. Visual: No visual loss 4. Facial Palsy: Normal symmetrical movements 5a. Left Arm: No drift; arm holds 90 (or 45) degrees for full 10 seconds 5b. Right Arm: No drift; arm holds 90 (or 45) degrees for full 10 seconds 6a. Left Leg: No drift; leg holds 30-degree position for full 5 seconds 6b. Right Leg: Drift; leg falls by the end of 5-seconds, but does not hit bed (She has a hx of chronic back pain with radiation into the R lateral thigh and the foot.....can not exclude that neuropathy/myopathy is the etiology of the weakness and not CVA) 7. Limb Ataxia: Absent 8. Sensory: Normal; no sensory loss 9. Best Language: [id number] aphasia; 10. Dysarthria: Normal 11. Extinction and Inattention: No abnormality Total: 3 Stroke Questions Stroke Team Activated: No Physical Exam Const alert Constitutional Narrative: Oriented to person and knows she is in a hospital but, does not know why she is here. Unable to tell me the month or the year. General Appearance: cooperative and well developed Orientation / Consciousness: confused HEENT moist oral mucous membranes HEENT Narrative: No thrush and no a Angular Cheilitis Eyes PERRL and EOMs intact bilaterally Neck supple, no JVD, No nodes and no carotid bruits General: trachea midline Resp normal respiratory effort Resp Narrative: Mild decrease in air exchange, mikhail in the bases. CTA. Not tachypneic and no conversational dyspnea. Cardio regular rate, regular rhythm, S1 normal heart sound, S2 normal heart sound, no murmurs, no rub and no gallops Cardio Narrative: No ectopy GI normal to inspection, nondistended, normoactive bowel sounds, soft to palpation and non-tender GI Narrative: Nu guarding with palpation. No abd bruits appreciated. Extremity no calf tenderness Extremity Narrative: Pedal pulses and popliteals are not palpable and the femoral pulses are very diminished. I did not appreciate any femoral bruits. General Extremity: Negative for clubbing, cyanosis or edema Skin no rashes or lesions noted, no wounds, no jaundice, no petechiae and no mottling General Skin Exam: no breakdown and dry skin Neuro CN's II-XII intact bilaterally Neuro Narrative: She has mild weakness in the RLE but, I suspect this may be due to neuropathy/myopathy from DDD No sensory loss on my exam but, PT thought she had decreased sensation in the R leg. Subjective questions are difficult for her.......her answers can vary from 1 examiner to the next and 1 day to the next. No ataxia on my exam but PT found that when she gets fatigued she veers strongly to the left when ambulating. No visual or tactile extinction. Coordination / Balance: [id number] test normal Speech: speech normal Psych cooperative Psych Narrative: She is pleasant and has no behavioral disturbances. No agitation. No tears and she has good facial expression. n she does not seem depressed or anxious at this time. Appearance: appropriate Results Lab / Micro Data 03/05/24 05:03 03/05/24 05:03 Labs: Laboratory Results - last 24 hr 03/04/24 22:12: POC Glucose 240 H 03/05/24 05:03: WBC 5.2, RBC 4.25, Hgb 12.7, Hct 37.5, MCV 88.2, MCH 29.9, MCHC 33.9, RDW Std Deviation 42.8, RDW Coeff of Benjamin 13.2, Plt Count 187, MPV 11.0, Immature Gran % (Auto) 0.200, Neut % (Auto) 60.2, Lymph % (Auto) 29.7, [place] % (Auto) 7.2, Eos % (Auto) 2.1, Baso % (Auto) 0.6, Absolute Neuts (auto) 3.1, Absolute Lymphs (auto) 1.53, Nucleated RBC % 0, ESR 20, Sodium 139, Potassium 3.6, Chloride 109 H, Carbon Dioxide 25.0, Anion Gap 5, BUN 15, Creatinine 0.36 L, Estim Creat Clear Calc 53.83, Est GFR (MDRD) Af Amer 226, Est GFR (MDRD) Non-Af 187, BUN/Creatinine Ratio 41.8 H, Glucose 179 H, Calcium 8.8, Phosphorus 3.2, Magnesium 1.7, Total Bilirubin 0.40, AST 22, ALT 13, Alkaline Phosphatase 89, C-React Prot Ext Range < 2.90, Total Protein 6.0 L, Albumin 2.6 L, Globulin 3.4, Albumin/Globulin Ratio 0.8 L 03/05/24 07:02: POC Glucose 178 H Assessment & Plan Assessment/Plan (1) Debility: (2) Stroke/cerebrovascular accident: QUALIFIERS: CVA mechanism: unspecified Qualified Code(s): I63.9 - Cerebral infarction, unspecified (3) Cognitive changes: (4) Urine retention: (5) UTI (urinary tract infection) due to Enterococcus: (6) Diabetes mellitus, type 2: QUALIFIERS: Diabetes mellitus chcf insulin use: with rat exterminator use Diabetes mellitus complication status: with circulatory complication Diabetes mellitus complication detail: with peripheral angiopathy without gangrene Qualified Code(s): E11.51 - Type 2 diabetes mellitus with diabetic peripheral angiopathy without gangrene; Z79.4 - FCI (current) use of insulin (7) Dementia: QUALIFIERS: Dementia type: vascular dementia Dementia severity: severe Dementia behavioral or psychological symptom: without behavioral, psychotic, or mood disturbance or anxiety Qualified Code(s): F01.C0 - Vascular dementia, severe, without behavioral disturbance, psychotic disturbance, mood disturbance, and anxiety (8) Tobacco dependence due to cigarettes: (9) Peripheral vascular disease: (10) Chronic combined systolic and diastolic CHF (congestive heart failure): (11) Cardiomyopathy: QUALIFIERS: Cardiomyopathy type: unspecified Qualified Code(s): I42.9 - Cardiomyopathy, unspecified (12) Hypertension: QUALIFIERS: Hypertension type: primary hypertension Qualified Code(s): I10 - Essential (primary) hypertension (13) Hyperlipidemia: QUALIFIERS: Hyperlipidemia type: unspecified Qualified Code(s): E78.5 - Hyperlipidemia, unspecified (14) Diabetic polyneuropathy: QUALIFIERS: Diabetes mellitus type: type 2 Qualified Code(s): E11.42 - Type 2 diabetes mellitus with diabetic polyneuropathy PLAN: Plan PLAN PT for gait stability OT for ADL's ST for evaluation Analgesics as needed Bowel protocol Fall precautions Assess for Anxiety/Depression GI prophylaxis -not indicated at this time DVT prophylaxis with LUCHO calhoun and ambulation Follow up with PCP, neurology, vascular surgery following DC from IP Rehab AM lab including CMP, CBC, Mag and Phos Discontinue hydrochlorothiazide Maintain on 10 mEq of potassium twice daily for the next few days until HCTZ is out of her system Check a TSH and B12 Check a KUB-her daughter tells me she has always had problems with her bowels and she is retaining urine so we need to assess for obstipation Start magnesium chloride 128 mg daily today Smoking cessation was discussed with Celia and she was advised that cigarette smoking is the leading preventable cause of mortality in the [place]. The 3 major causes of smoking-related mortality are atherosclerotic cardiovascular dieases, lung cancer and COPD. Up to 1/2 of all smokers can expect to of a smoking related illness. Smoking also increases the risk for Infections, Diabetes, Osteoporosis, Reproductive disorders, PUD, peridontal disease and postoperative complications. Nicotine is a potent psychoactive drug that causes physical dependence and tolerance. Nicotine withdrawal sx including increased appetite or weight gain, depressed mood, insomnia, irritability, frustration, anxiety, difficulty concentrating and restlessness were discussed. Celia was advised that the withdrawal symptoms generally peak in the first 3 days and subside over the next 3-4 weeks but cravings may continue for months to years. Both Behavioral and pharmacologic therapies were discussed with the patient and [ ] was given an opportunity to ask questions. All questions were answered and Celia was made aware of the smoking cessation program at [facility]. A Nicotine patch was ordered and a prescription will provided at the time of discharge. CODE STATUS: Discussed code status at length with Celia Durant's daughter, including the difference between FULL CODE, DNR CCA and DNR CC status. All questions were answered. An order for DNR CC arrest with no intubation was entered into the computer. A total of 10 minutes face to face time was devoted to advanced care planning. Charges/Coding Visit Charges Inpatient E&M: 04882 Init Hosp L3
[2024-03-05 11:26] LABS: Bedside Glucose 256 mg/dL (74-106)
--- NOTE | 2024-03-05 13:39 | CASEMGMT ---
Social Work SW attempted to meet with patient to complete initial intake assessment. Patient is currently being evaluated by speech therapy. MAXIMO Mccarthy
--- NOTE | 2024-03-05 15:15 | CASEMGMT ---
Social Work- RU Admit HINA met with patient and daughter, Shivani Garcia at bedside to complete initial intake assessment. Patient is A&Ox1 (disoriented to time, place, situation). SW introduced self and role. Patient's daughter, Shivani Garcia ([phone]) confirmed patient's demographics and provided contact information. Prior to admission, patient was residing in home alone with caregiver, Nakul ([phone]) coming to home once a week. Shivani informed SW that she resides in [place] unable to provide physical assistance in home. Shivani is the patient's DPOA; copy of advanced directive has been placed in patient's chart. Shivani manages patient finances due to patient and neglecting to pay bills for home. Patient's was released from hospital prior to the patient's admission to the hospital. Patient's Malcolm is unable to provide physical assistance in the home. Dr. Gomes expressed concern for patient's mentation and medical condition. Patient scored 12/50 on B-Cat. 6/15 on BIM. During assessment the patient was having disorganized thoughts, exhibiting low comprehension, did not recognize her daughter in the room, and experienced cycling thoughts. HINA discussed concerns for patient ability to care for self. HINA recommends looking for nursing care due to safety concerns to return home. Shivani informed HINA that her goal is to have the patient move to [place] with family, patient's has a home in [place]. Shivani informed SW that she has a meeting with her parents president financial institution to determine their financial status. HINA educated daughter about [facility] Medicare insurance coverage; next review date 03/11/2024. HINA discussed Medicaid and private pay responsibility for placement. HINA will continue to follow to support discharge planning. MAXIMO Mccarthy
--- NOTE | 2024-03-05 15:50 | RAD_ITS ---
EXAM: XR ABDOMEN, 1 VIEW CLINICAL INDICATION: constipation TECHNIQUE: Frontal supine view of the abdomen/pelvis. COMPARISON: No relevant prior studies available. FINDINGS: LOWER THORAX: Lung bases are clear. INTRAPERITONEAL SPACE: Limited assessment for free air on presumed supine examination. GASTROINTESTINAL TRACT: Stool and gas throughout the colon. No bowel obstruction. ORGANS: Calcific granulomas of the spleen. Calcifications of the pancreas are suspected. Prior cholecystectomy. No organomegaly. BONES/JOINTS: No unusual lytic or sclerotic lesions of bone. Remote ORIF of a right femur fracture, without gross complication although incompletely imaged. Broad leftward curvature of the thoracolumbar spine with multilevel spine degenerative changes. SOFT TISSUES: No acute pathology. RAD/Abdomen Single View IMPRESSION: 1. Stool and gas throughout the colon compatible with constipation. 2. No bowel obstruction or any acute disease. 3. Ancillary findings as above. Electronically Signed: Gonzalo Candelario MD at 16:33 EDT ,
[2024-03-05 17:05] LABS: Bedside Glucose 264 mg/dL (74-106)
[2024-03-05] MEDS: Magnesium Chloride 64 MG Delay Rel.Tablet 128 MG PO (17:23)
[2024-03-05 18:00] LABS: Vitamin B12 358 pg/mL (211-911)
[2024-03-05 18:08] LABS: Hemoglobin A1c 8.3 % (3.8-5.6)
[2024-03-05] MEDS: Magnesium Hydroxide 30 ML UDC PO (18:56)
[2024-03-05 20:00] VITALS: BP 130/52; PULSE 81; RESP 16; TEMP 36.8; O2SAT 98
[2024-03-05] MEDS: Atorvastatin Calcium 80 MG Tablet PO (20:47)
[2024-03-05 21:02] LABS: Bedside Glucose 165 mg/dL (74-106)
[2024-03-05 22:00] VITALS: PULSE 81; RESP 16; O2SAT 98
[2024-03-06] MEDS: AMOXICILLIN 500 MG CAPSULE PO ×3 (05:55→21:21)
[2024-03-06] MEDS: Enoxaparin 40 MG/0.4 ML Syringe SC (05:55)
[2024-03-06 06:15] LABS: Bedside Glucose 128 mg/dL (74-106)
[2024-03-06] MEDS: Insulin Human 75/25 Kwickpen 15 UNIT SC (07:25)
[2024-03-06] MEDS: Multivitamins,Therapeutic Tablet 1 TABLET PO (07:26)
[2024-03-06] MEDS: Cholecalciferol (VIT D3) 25 MCG TABLET (1,000 UNITS) 50 MCG PO (08:37)
[2024-03-06] MEDS: amLODIPine 5 MG Tablet PO (08:38)
[2024-03-06] MEDS: Potassium Chloride Oral Tablet 10 MEQ PO ×2 (08:38→21:20)
[2024-03-06] MEDS: Calcium Carbonate 500 MG Tablet PO ×2 (08:38→21:20)
[2024-03-06] MEDS: Cilostazol 50 MG Tablet PO ×2 (08:38→21:21)
[2024-03-06] MEDS: Aspirin E.C. 81 MG Tablet PO (08:38)
[2024-03-06] MEDS: Magnesium Chloride 64 MG Delay Rel.Tablet 128 MG PO (08:39)
[2024-03-06 08:50] VITALS: BP 102/51; PULSE 91; RESP 18; TEMP 36.7; O2SAT 96
[2024-03-06 11:38] LABS: Bedside Glucose 164 mg/dL (74-106)
--- NOTE | 2024-03-06 11:49 | REHABEVAL_ITS ---
Admission Information Primary Diagnosis:: Post stroke debility Status Changes from Prescreening?: No changes Identified Actual Problem List:: Falls, Cognitve Impr/Memory Loss, Depression, Bladder Incontinence, Bowel, Constipation, Mobility Impaired, Self Care Deficit, Diabetes, Hyperglycemia, Diabetes, Hypoglycemia and Alteration-Leisure Activ. Potential Problem List:: DVT, Bleeding, Infection, UTI, Aspiration, Falls, Skin Integrity and Depression Risk of Complications DVT: LUCHO Hose and - (ambulation) Bleeding: Monitor Lab Values, Nursing to Teach Precautions for anti-coagulation therapy., Wound, if applicable, to be assessed every shift. and Stroke patients assessed for lethargy or change in status. Infection: Clinical Staff to Monitor for S/S of infection: and S/S of infection include fever, redness, warmth, etc. Urinary Tract Infection: Monitor for frequency, burning, discomfort, or incontinence. and Nursing will obtain urine sample for urinalysis and C&S when ordered. Aspiration: Clinical staff will monitor for coughing, drooling, congestion., Speech will evaluate swallowing and dsyphasia. and Nursing will monitor patient swallowing during meals. Falls: Patient will be evaluated for Fall Precautions and Patient will be placed on Fall Precautions as indicated per protocol. Skin Breakdown: Nursing will assess skin daily using assessment tool. and Nursing will place on Skin Breakdown Precautions as indicated. Pain: Clinical staff will assess patient's pain level per protocol., Medications will be given, if needed, and the pain level reassessed. and Other methods: Massage, distraction, decrease stimulus, etc. used PRN. Plan of Care Patient requires physician specializing in physical medicine and rehab oversight to provide close medical supervision of rehab issues including: Pain Management, Sleep Problems, Bowel and Bladder, Medical and co-morbidity Management, DVT prophylaxis, Rehabilitation Leadership and Coordination of treatment team Patient needs Physical Therapy: For a minimum of 1 hour and At least 5 out of 7 days Patient needs Physical Therapy to improve:: Mobility, Strengthening, Transfers, Stretching, ROM, Endurance, Stairs, Gait and Balance Patient needs Occupational Therapy: For a minimum of 1 hour and At least 5 out of 7 days Patient needs Occupational Therapy to improve ADL's incl.: Eating, Grooming, Bathing, Dressing, Toileting, Toilet transfers, Community Reintegration, Higher functioning activities, Household tasks, Adaptive Equipment, Splinting and Other activities as determined Patient requires speech therapy: For a minimum of 1 hour and At least 5 out of 7 days Patient requires speech therapy for: Swallowing, Cognition, Language Skills and Compensatory Strategies Patient requires 24/ Rehabilitation Nursing for: Pain Issues, Identifying and preventing risk factors, Monitoring and reporting current medical conditions, Assisting with ambulation, transfer, and all ADL's, Teaching patients about disease process and medications, Family teaching, Providing safe environment, Bowel and Bladder Issues, Skin integrity and Medication Management Patient needs Dormitory Supervisor/ Case Management for: Discharge Planning, Arranging Home Equipment or Services and Family Interventions Patient needs Dietary and Nutrition Services for: Adequate Nutrition, Nutritional Supplements and Nutritional Education Goals Goals Patient will remain: free from falls Patient will perform eating at: MOD I level of assist. Patient will perform bed mobility at: MOD I level of assist. Patient will complete transfers from bed to chair at: Standby Assist. Patient will ambulate: - (350 feet with a wheeled walker on various surfaces and more distractible environments at standby assist) Patient will complete upper body dressing at: - (Supervision) Patient will complete lower body dressing at: - (Supervision with adaptive equipment as needed for increased independence with self-care) Patient will complete toilet transfer at: - (Supervision) Patient will complete toileting at: - (Supervision) Patient will perform bathing at: - (She will complete upper body bathing set up and lower body bathing and supervision with adaptive equipment as needed.) Patient will perform Tub/Shower transfer at: - (Supervision) Patient will complete grooming at: - (Supervision while standing at the sink) Patient will achieve: - (1 curb step with a wheeled walker at contact-guard assist) Patient will have pain level of: of 3 or less Patient's skin will: remain intact Patient will receive: adequate nutrition. Discharge Planning Pt Prognosis for Sig. Practical Improv. w/in Reasonable Time: Good Estimated Length of stay (days): 21 Anticipated D/C Destination: Assisted Living Facility Was Preadmission Assessment Accurate?: Yes
[2024-03-06] MEDS: Insulin Lispro 100 UNIT/ML INSULN.PEN SC ×2 (11:59→16:50)
--- NOTE | 2024-03-06 12:00 | PN_ITS ---
Subjective Subjective Afebrile VSS -blood pressure for the past 24 hours has ranged from 102/51 to 130/52 Maintaining appropriate oxygen saturation on RA Oral intake - FOOD 75 to 100% of meals FLUIDS p.o. intake was 1600 yesterday. Urine output was 754 and fluid balance of +850. She is incontinent of urine so I suspect the UO is > 754. The blood sugar record was reviewed. Discussed with nursing - no problems that need addressed Reviewed the THERAPY notes Medication list reviewed. KUB showed no evidence of bowel obstruction but did show a moderate to large accumulation of stool and gas throughout the colon. She was given a laxative last evening and had 1 bowel movement yesterday and 1 this morning. TSH and B12 are within normal limits. ESR and CRP are unremarkable. Damaris has no complaints today. She denies JENSEN, lightheadedness, cough, SOB, CP, abd pain, dysuria, nausea and calf pain at rest. She ambulated 100 ft with therapy and was surprised she did not have calf pain. Objective Data Objective Data Vital Signs: Vital Signs Temp Pulse Resp BP Pulse Ox O2 Del Method 98.1 F 91 18 102/51 L 96 Room Air 03/06/24 08:50 03/06/24 08:50 03/06/24 08:50 03/06/24 08:50 03/06/24 08:50 03/06/24 08:54 Oxygen Delivery Method Room Air Weight: 143 lb 4.807 oz Body Mass Index (BMI) 23.9 Intake & Output: Intake and Output for Last 24 Hours 03/04/24 03/05/24 03/06/24 23:59 23:59 23:59 Intake Total 100 / 100 1600 / 1600 Output Total 750 / 750 Balance 100 / 100 850 / 850 Lab / Micro Data 03/05/24 05:03 03/05/24 05:03 Labs: Laboratory Results - last 24 hr 03/05/24 05:03: Hemoglobin A1c 8.3 H, TSH 1.60 03/05/24 16:40: POC Glucose 264 H 03/05/24 17:25: Vitamin B12 358 03/05/24 20:43: POC Glucose 165 H 03/06/24 05:57: POC Glucose 128 H 03/06/24 11:17: POC Glucose 164 H Radiography Diagnostic Testing: Radiology Impression KUB X-Ray 03/05/24 15:50 IMPRESSION: 1. Stool and gas throughout the colon compatible with constipation. 2. No bowel obstruction or any acute disease. 3. Ancillary findings as above. Electronically Signed: Gonzalo Candelario MD at 16:33 EDT , Physical Exam Const alert Constitutional Narrative: Pleasant and cooperative. Orientation / Consciousness: confused HEENT moist oral mucous membranes Resp clear to auscultation bilaterally Resp Narrative: No conversational dyspnea. Effort and Inspection: Negative for tachypneic or respiratory distress Cardio regular rate, regular rhythm, no murmurs and no gallops Cardio Narrative: No ectopy GI normal to inspection, nondistended, normoactive bowel sounds, soft to palpation and non-tender GI Narrative: No guarding with palpation Extremity no calf tenderness Extremity Narrative: Both feet are warm to the touch. General Extremity: Negative for edema Skin General Skin Exam: no breakdown Rashes: no rashes Assessment & Plan Assessment/Plan (1) Debility: (2) Stroke/cerebrovascular accident: QUALIFIERS: CVA mechanism: unspecified Qualified Code(s): I63.9 - Cerebral infarction, unspecified (3) Cognitive changes: (4) Urine retention: (5) UTI (urinary tract infection) due to Enterococcus: (6) Diabetes mellitus, type 2: QUALIFIERS: Diabetes mellitus long term care social worker insulin use: with skilled nursing use Diabetes mellitus complication status: with circulatory complication Diabetes mellitus complication detail: with peripheral angiopathy without gangrene Qualified Code(s): E11.51 - Type 2 diabetes mellitus with diabetic peripheral angiopathy without gangrene; Z79.4 - terminal block assembler (current) use of insulin (7) Dementia: QUALIFIERS: Dementia type: vascular dementia Dementia severity: s evere Dementia behavioral or psychological symptom: without behavioral, psychotic, or mood disturbance or anxiety Qualified Code(s): F01.C0 - Vascular dementia, severe, without behavioral disturbance, psychotic disturbance, mood disturbance, and anxiety (8) Peripheral vascular disease: (9) Cardiomyopathy: QUALIFIERS: Cardiomyopathy type: unspecified Qualified Code(s): I 42.9 - Cardiomyopathy, unspecified PLAN: Plan 1. Continue therapy 2. Increase a.m. 75/25 to 18 units every morning and decrease the dose at supper to 12 units. No coverage at HS. 3. Laxatives again today.......I suspect the constipation is contributing to urine retention. If the urine retention continues once she is cleaned out will consider adding Flomax 4. Recheck a BMP on Saturday and also get a vitamin D level. Charges/Coding Visit Charges Inpatient E&M: 82527 Subs Hosp L1
[2024-03-06] MEDS: Insulin Human 75/25 Kwickpen 12 UNIT SC (16:52)
[2024-03-06 17:13] LABS: Bedside Glucose 173 mg/dL (74-106)
[2024-03-06] MEDS: Atorvastatin Calcium 80 MG Tablet PO (21:20)
[2024-03-06] MEDS: PARoxetine 10 MG Tablet PO (21:21)
[2024-03-06 21:30] VITALS: PULSE 89; O2SAT 96
[2024-03-06 22:00] VITALS: BP 104/64; PULSE 89; RESP 17; RESP 18; TEMP 36.9; O2SAT 96
[2024-03-06 22:05] LABS: Bedside Glucose 166 mg/dL (74-106)
[2024-03-07] MEDS: AMOXICILLIN 500 MG CAPSULE PO ×3 (06:16→22:12)
[2024-03-07] MEDS: Enoxaparin 40 MG/0.4 ML Syringe SC (06:16)
[2024-03-07 07:05] VITALS: O2SAT 93
[2024-03-07 07:09] LABS: Bedside Glucose 124 mg/dL (74-106)
[2024-03-07] MEDS: Magnesium Chloride 64 MG Delay Rel.Tablet 128 MG PO (07:32)
[2024-03-07] MEDS: Potassium Chloride Oral Tablet 10 MEQ PO ×2 (07:32→22:12)
[2024-03-07] MEDS: Insulin Human 75/25 Kwickpen 18 UNIT SC (07:32)
[2024-03-07] MEDS: Cholecalciferol (VIT D3) 25 MCG TABLET (1,000 UNITS) 50 MCG PO (07:32)
[2024-03-07] MEDS: Calcium Carbonate 500 MG Tablet PO ×2 (07:33→22:12)
[2024-03-07] MEDS: Aspirin E.C. 81 MG Tablet PO (07:33)
[2024-03-07] MEDS: amLODIPine 5 MG Tablet PO (07:33)
[2024-03-07] MEDS: Multivitamins,Therapeutic Tablet 1 TABLET PO (07:34)
[2024-03-07] MEDS: Cilostazol 50 MG Tablet PO ×2 (07:34→22:12)
[2024-03-07] MEDS: Senna/Docusate Sodium 1 Tablet 2 TABLET PO ×2 (07:38→22:12)
[2024-03-07 08:38] VITALS: BP 122/95; PULSE 89; RESP 18; TEMP 36.4; O2SAT 95
[2024-03-07 11:00] VITALS: BP 122/95; PULSE 89; RESP 18; TEMP 36.4; O2SAT 95
[2024-03-07 11:58] LABS: Bedside Glucose 162 mg/dL (74-106)
[2024-03-07] MEDS: Insulin Lispro 100 UNIT/ML INSULN.PEN SC (12:01)
[2024-03-07 17:16] LABS: Bedside Glucose 145 mg/dL (74-106)
[2024-03-07] MEDS: Insulin Human 75/25 Kwickpen 12 UNIT SC (17:31)
[2024-03-07 22:00] VITALS: BP 120/62; PULSE 90; RESP 17; TEMP 36.8; O2SAT 95
[2024-03-07] MEDS: Atorvastatin Calcium 80 MG Tablet PO (22:12)
[2024-03-07] MEDS: PARoxetine 10 MG Tablet PO (22:12)
[2024-03-07 22:39] LABS: Bedside Glucose 158 mg/dL (74-106)
[2024-03-08] MEDS: AMOXICILLIN 500 MG CAPSULE PO ×3 (05:57→20:50)
[2024-03-08] MEDS: Enoxaparin 40 MG/0.4 ML Syringe SC (05:57)
[2024-03-08 07:06] LABS: Bedside Glucose 172 mg/dL (74-106)
[2024-03-08] MEDS: Insulin Lispro 100 UNIT/ML INSULN.PEN SC ×2 (07:29→16:59)
[2024-03-08] MEDS: Insulin Human 75/25 Kwickpen 18 UNIT SC (07:30)
[2024-03-08] MEDS: Potassium Chloride Oral Tablet 10 MEQ PO ×2 (07:31→20:50)
[2024-03-08] MEDS: Cholecalciferol (VIT D3) 25 MCG TABLET (1,000 UNITS) 50 MCG PO (07:31)
[2024-03-08] MEDS: Magnesium Chloride 64 MG Delay Rel.Tablet 128 MG PO (07:31)
[2024-03-08] MEDS: amLODIPine 5 MG Tablet PO (07:31)
[2024-03-08] MEDS: Calcium Carbonate 500 MG Tablet PO ×2 (07:31→20:51)
[2024-03-08] MEDS: Aspirin E.C. 81 MG Tablet PO (07:31)
[2024-03-08] MEDS: Cilostazol 50 MG Tablet PO ×2 (07:31→20:49)
[2024-03-08] MEDS: Multivitamins,Therapeutic Tablet 1 TABLET PO (07:32)
[2024-03-08] MEDS: Senna/Docusate Sodium 1 Tablet 2 TABLET PO ×2 (07:32→20:50)
[2024-03-08 08:53] VITALS: BP 111/60; PULSE 90; RESP 18; TEMP 36.8; O2SAT 95
[2024-03-08 11:49] LABS: Bedside Glucose 84 mg/dL (74-106)
[2024-03-08 16:58] LABS: Bedside Glucose 172 mg/dL (74-106)
[2024-03-08] MEDS: Insulin Human 75/25 Kwickpen 12 UNIT SC (17:00)
[2024-03-08 20:27] VITALS: BP 118/57; PULSE 84; RESP 15; TEMP 36.3; O2SAT 97
[2024-03-08] MEDS: Atorvastatin Calcium 80 MG Tablet PO (20:48)
[2024-03-08] MEDS: PARoxetine 10 MG Tablet PO (20:50)
[2024-03-08 22:21] LABS: Bedside Glucose 101 mg/dL (74-106)
[2024-03-09 05:20] LABS: Hematocrit 36.8 % (37-47); Hemoglobin 12.5 g/dL (12.0-15.0)
[2024-03-09 05:49] LABS: Anion Gap 6 (5-15); BUN 7 mg/dL (7-18); BUN/Creat Ratio 21.5 RATIO (10-20); Calcium,Total 8.9 mg/dL (8.5-10.1); Chloride 111 mmol/L (98-107); Creatinine, Serum 0.33 mg/dL (0.55-1.02); EST Glomerular Filtration Rate 209 mL/min (>60); Est Glom Filt Rate - Afr Amer 253 mL/min (>60); Estimated Creatinine Clearance 53.83 ml/min; Glucose 100 mg/dL (74-106); Potassium 3.7 mmol/L (3.5-5.1); Sodium Level 143 mmol/L (136-145)
[2024-03-09 05:51] LABS: Vitamin D,25 Hydroxy 25.5 ng/mL
[2024-03-09] MEDS: Enoxaparin 40 MG/0.4 ML Syringe SC (05:56)
[2024-03-09] MEDS: AMOXICILLIN 500 MG CAPSULE PO ×2 (05:59→14:05)
[2024-03-09 06:00] VITALS: BP 122/47; PULSE 83; RESP 16; TEMP 36.4; O2SAT 95
[2024-03-09 06:51] LABS: Bedside Glucose 108 mg/dL (74-106)
[2024-03-09] MEDS: Multivitamins,Therapeutic Tablet 1 TABLET PO (07:53)
[2024-03-09] MEDS: Calcium Carbonate 500 MG Tablet PO ×2 (07:53→21:07)
[2024-03-09] MEDS: Senna/Docusate Sodium 1 Tablet 2 TABLET PO ×2 (07:53→21:07)
[2024-03-09] MEDS: Cholecalciferol (VIT D3) 25 MCG TABLET (1,000 UNITS) 50 MCG PO (07:54)
[2024-03-09] MEDS: Magnesium Chloride 64 MG Delay Rel.Tablet 128 MG PO (07:54)
[2024-03-09] MEDS: Potassium Chloride Oral Tablet 10 MEQ PO ×2 (07:54→21:07)
[2024-03-09] MEDS: Cilostazol 50 MG Tablet PO ×2 (07:54→21:07)
[2024-03-09] MEDS: amLODIPine 5 MG Tablet PO (07:54)
[2024-03-09] MEDS: Aspirin E.C. 81 MG Tablet PO (07:54)
[2024-03-09] MEDS: Insulin Human 75/25 Kwickpen 18 UNIT SC (07:55)
--- NOTE | 2024-03-09 09:25 | PCM.PROGNOTE ---
Subjective Subjective Afebrile VSS - BP is well controlled and the HR is WNL Maintaining appropriate oxygen saturation on RA Oral intake - FOOD good FLUIDS improving Discussed with nursing - no problems that need addressed. Sleeping well at night. Reviewed the THERAPY notes Medication list reviewed. The blood sugar record was reviewed. Blood sugar at at bedtime was 101 and the fasting today is 108. Blood sugar prior to lunch is 158. BS's are coming under better control. No hypoglycemia but, the BS at lunch yesterday was 84 (she had coverage in the AM for a FBS of 172. All lab from this morning was personally reviewed. Hemoglobin is 12.5 which is stable. Sodium is 143 and the potassium is 3.7. The BUN is 7 and the creatinine is 0.33 which is stable. Mag is pending. I reviewed the results of a transthoracic echocardiogram done on 01/21/2024 at [facility]. The echocardiogram showed an ejection fraction of 35 to 40% with inferior/inferoseptal hypokinesis. Diastolic dysfunction was present but unable to be assessed for severity. The left atrium was dilated. Bubble contrast study was negative for a right to left shunt. Damaris denies lightheadedness, chest pain, cough, shortness of breath, nausea/vomiting/abdominal pain, burning with urination and pain in her calves. She has no complaints. Objective Data Objective Data Vital Signs: Vital Signs Temp Pulse Resp BP Pulse Ox O2 Del Method 97.6 F L 83 16 122/47 H 95 Room Air 03/09/24 06:00 03/09/24 06:00 03/09/24 06:00 03/09/24 06:00 03/09/24 06:00 03/09/24 06:00 Oxygen Delivery Method Room Air Weight: 143 lb 4.807 oz Body Mass Index (BMI) 23.9 Intake & Output: Intake and Output for Last 24 Hours 03/07/24 03/08/24 03/09/24 23:59 23:59 23:59 Intake Total 1090 / 1090 1810 / 1810 350 / 350 Output Total 300 / 300 400 / 400 100 / 100 Balance 790 / 790 1410 / 1410 250 / 250 Lab / Micro Data 03/09/24 05:08 03/09/24 05:08 Labs: Laboratory Results - last 24 hr 03/08/24 11:30: POC Glucose 84 03/08/24 16:41: POC Glucose 172 H 03/08/24 22:00: POC Glucose 101 03/09/24 05:08: Hgb 12.5, Hct 36.8 L, Sodium 143, Potassium 3.7, Chloride 111 H, Carbon Dioxide 26.0, Anion Gap 6, BUN 7, Creatinine 0.33 L, Estim Creat Clear Calc 53.83, Est GFR (MDRD) Af Amer 253, Est GFR (MDRD) Non-Af 209, BUN/Creatinine Ratio 21.5 H, Glucose 100, Calcium 8.9, Vitamin D 25-Hydroxy 25.5 03/09/24 06:33: POC Glucose 108 H Physical Exam Const alert and no apparent distress Constitutional Narrative: She knows to reference the info in her room to tell her the date and the place where she is at. She thinks she is in her 30's. She is telling about her granddaughter Amarilis and she can not remember how old she is. She told me her dtr's name is Lucille and that Lucille lives in [place]. 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 General Appearance: cooperative Orientation / Consciousness: confused Resp clear to auscultation bilaterally Resp Narrative: Mildly diminished throughout. Effort and Inspection: Negative for tachypneic, respiratory distress or labored Cardio regular rate, regular rhythm, no murmurs and no gallops Cardio Narrative: No ectopy GI normal to inspection, nondistended, normoactive bowel sounds, soft to palpation and non-tender GI Narrative: No guarding with palpation Extremity no calf tenderness General Extremity: Negative for edema Skin General Skin Exam: no breakdown Rashes: no rashes Assessment & Plan Assessment/Plan (1) Debility: (2) Stroke/cerebrovascular accident: QUALIFIERS: CVA mechanism: unspecified Qualified Code(s): I63.9 - Cerebral infarction, unspecified (3) Cognitive changes: (4) Urine retention: (5) UTI (urinary tract infection) due to Enterococcus: PLAN: Present at the time of admission to rehab and started on Amoxicillin at the previous institution.......she had bacteremia. (6) Diabetes mellitus, type 2: QUALIFIERS: Diabetes mellitus transit mix operator insulin use: with senior care use Diabetes mellitus complication status: with circulatory complication Diabetes mellitus complication detail: with peripheral angiopathy without gangrene Qualified Code(s): E11.51 - Type 2 diabetes mellitus with diabetic peripheral angiopathy without gangrene; Z79.4 - jail (current) use of insulin (7) Dementia: QUALIFIERS: Dementia type: vascular dementia Dementia severity: severe Dementia behavioral or psychological symptom: without behavioral, psychotic, or mood disturbance or anxiety Qualified Code(s): F01.C0 - Vascular dementia, severe, without behavioral disturbance, psychotic disturbance, mood disturbance, and anxiety PLAN: Suspect vascular dementia however there is a FH of dementia in her mother. (8) Peripheral vascular disease: (9) Cardiomyopathy: QUALIFIERS: Cardiomyopathy type: unspecified Qualified Code(s): I42.9 - Cardiomyopathy, unspecified PLAN: 35-40% EF in January of 2024 with inferior and inferoseptal hypokinesis........likely due to CAD. PLAN: Plan 1. Continue therapy 2. Amoxicillin for treatment of Enterococcus faecalis urinary tract infection will conclude today. 3. BP is controlled with Amlodipine. She is not on a diuretic or an CARLA/ARB or Aldactone yet she is diabetic and has has a 35-40% EF. Will transition to an ARB and DC Amlodipine. Keep the K for now and recheck lab on . If the K is up I will DC the K supplement and consider adding a low dose of Aldactone daily to keep the K around 4. 4. The magnesium is 1.9 today-will continue the magnesium supplement. 5. DC the sliding insulin scale and continue to monitor blood sugars 4 times daily for another 48 hours. 6. consider a trial of Aricept for dementia........will discuss with Lucille and with Damaris at next TEAM meeting. Charges/Coding Visit Charges Inpatient E&M: 49615 Subs Hosp L1
[2024-03-09 09:57] LABS: Magnesium 1.9 mg/dL (1.6-2.6)
[2024-03-09 11:23] LABS: Bedside Glucose 158 mg/dL (74-106)
--- NOTE | 2024-03-09 12:46 | CASEMGMT ---
Addendum entered by Adelia Gipson 03/09/24 14:01: SW met with pt and family members for extended period of time. Educated and answered questions to AL for pt and , with memory care and allowance of dogs, SNF options for short-term stay if AL cannot be immediate DC plan, or if AL is unable to accept pt/ LOC. Discussed OOP pricing for both LOCs and Medicaid eligibility. Dtr would like to inquire about AL pricing to determine if pt/ can afford it. Dtr also wanting an AL with memory care or SNF with memory care option, as she is planning for the future with pt's progression of diagnosis of Dementia. Dtr requesting referral to [facility] in [place], [place] and [facility] in [place], [place]. Dtr would like SNF list in [place] as well with [facility] SNFs. [place] is a distance between multiple family members. SW agreed to making AL referrals and sending SNF list to dtr via [employer] to dtr's provided email address. All family members expressed appreciation for this worker's time and assistance. Family agreeable to goal DC next week. SW will continue to follow. Adelia ALLEN Original Note: Social Work IDT met with patient, , dtr and caregiver since 2019, Nakul, for Team meeting. Discussed patients progress in PT/OT/ST/SN. Educated to [facility] insurance with NRD 03/11 and continued stay is not guaranteed with each review. IDT recommending SNF stay at DC, and encouraged to admit with pt to SNF. Children and IDT recognize is physically and medically compromised and could benefit from assistance as well. SW educated to insurance coverage for skilled SNF and intermediate SNF stay with [facility] and [facility] facilities. Offered list of SNF choices to review choices with quality and resource data in pt's preferred geographic area. Dtr interested in discussing options further. SW agreed and arranged to meet with pt/family after set of Team meetings. MIGUEL Amaya
[2024-03-09 16:42] LABS: Bedside Glucose 182 mg/dL (74-106)
[2024-03-09] MEDS: Insulin Human 75/25 Kwickpen 12 UNIT SC (16:50)
[2024-03-09 17:09] VITALS: BP 109/61; PULSE 82; RESP 17; TEMP 37.2; O2SAT 98
[2024-03-09] MEDS: Atorvastatin Calcium 80 MG Tablet PO (21:07)
[2024-03-09] MEDS: Arthritis Pain Compound 60 CLICK TUBE TOPICAL (21:07)
[2024-03-09] MEDS: PARoxetine 10 MG Tablet PO (21:07)
[2024-03-09 22:15] LABS: Bedside Glucose 108 mg/dL (74-106)
[2024-03-10] MEDS: Enoxaparin 40 MG/0.4 ML Syringe SC (05:47)
[2024-03-10] MEDS: Arthritis Pain Compound 60 CLICK TUBE TOPICAL ×2 (05:47→21:51)
[2024-03-10 05:51] VITALS: BP 136/62; PULSE 82; RESP 16; TEMP 36.6; O2SAT 92
[2024-03-10 07:05] LABS: Bedside Glucose 125 mg/dL (74-106)
[2024-03-10] MEDS: Senna/Docusate Sodium 1 Tablet 2 TABLET PO ×2 (07:45→21:50)
[2024-03-10] MEDS: Magnesium Chloride 64 MG Delay Rel.Tablet 128 MG PO (07:45)
[2024-03-10] MEDS: Aspirin E.C. 81 MG Tablet PO (07:45)
[2024-03-10] MEDS: Multivitamins,Therapeutic Tablet 1 TABLET PO (07:45)
[2024-03-10] MEDS: Insulin Human 75/25 Kwickpen 18 UNIT SC (07:46)
[2024-03-10] MEDS: Cholecalciferol (VIT D3) 25 MCG TABLET (1,000 UNITS) 50 MCG PO (07:46)
[2024-03-10] MEDS: Potassium Chloride Oral Tablet 10 MEQ PO ×2 (07:46→21:51)
[2024-03-10] MEDS: Cilostazol 50 MG Tablet PO ×2 (07:46→21:50)
[2024-03-10] MEDS: Calcium Carbonate 500 MG Tablet PO ×2 (07:46→21:51)
[2024-03-10] MEDS: Losartan Potassium 50 MG Tablet PO (07:46)
--- NOTE | 2024-03-10 09:06 | PCM.PROGNOTE ---
Subjective Subjective Afebrile VSS - Maintaining appropriate oxygen saturation on RA Oral intake - FOOD good FLUIDS good Discussed with nursing - no problems that need addressed Reviewed the THERAPY notes Medication list reviewed. She will start Cozaar today for BP control and to prevent worsening kidney disease. She also has a CM, likely ischemic. She had some vivid dreams last night. told me she was moved all over and she saw her brother and she was supposed to go see a doctor but, no one saw her. Nursing reported she slept better than she has been sleeping. She denies lightheadedness, cephalgia, shortness of breath, chest pain, nausea/vomiting, painful urination and calf pain. She is eating very well and has decent fluid intake. Her only complaint is R knee pain and she can not remember that nursing applied compounded arthritis cream to her knees twice already. Objective Data Objective Data Vital Signs: Vital Signs Temp Pulse Resp BP Pulse Ox O2 Del Method 97.9 F 82 16 136/62 H 92 Room Air 03/10/24 05:51 03/10/24 05:51 03/10/24 05:51 03/10/24 05:51 03/10/24 05:51 03/10/24 05:51 Oxygen Delivery Method Room Air Weight: 143 lb 4.807 oz Body Mass Index (BMI) 23.9 Intake & Output: Intake and Output for Last 24 Hours 03/08/24 03/09/24 03/10/24 23:59 23:59 23:59 Intake Total 1810 / 1810 1490 / 1490 610 / 610 Output Total 400 / 400 900 / 900 Balance 1410 / 1410 590 / 590 610 / 610 Lab / Micro Data 03/09/24 05:08 03/09/24 05:08 Labs: Laboratory Results - last 24 hr 03/09/24 05:08: Magnesium 1.9 03/09/24 11:05: POC Glucose 158 H 03/09/24 16:25: POC Glucose 182 H 03/09/24 21:49: POC Glucose 108 H 03/10/24 06:45: POC Glucose 125 H Physical Exam Const alert Constitutional Narrative: She remembers to look at the info on the wall by her recliner to orient herself but, can not tell me without looking anything but her name. She is pleasant and cooperative. General Appearance: cooperative Orientation / Consciousness: confused HEENT HEENT Narrative: MM are a little dry. Resp clear to auscultation bilaterally Resp Narrative: Mildly diminished throughout. Effort and Inspection: Negative for tachypneic or respiratory distress Auscultation: diminished lung sounds bilateral (mild, mikhail in the bases. ) Cardio regular rate, regular rhythm, no murmurs and no gallops Cardio Narrative: No ectopy GI normal to inspection, nondistended, normoactive bowel sounds, soft to palpation and non-tender GI Narrative: No guarding with palpation Extremity no calf tenderness General Extremity: Negative for edema Skin General Skin Exam: no breakdown Rashes: no rashes Psych cooperative Psych Narrative: Does not seem anxious or depressed. Always pleasant and cooperative. Assessment & Plan Assessment/Plan (1) Debility: (2) Stroke/cerebrovascular accident: QUALIFIERS: CVA mechanism: unspecified Qualified Code(s): I63.9 - Cerebral infarction, unspecified (3) Cognitive changes: (4) Urine retention: (5) Diabetes mellitus, type 2: QUALIFIERS: Diabetes mellitus director long term care insulin use: with group home use Diabetes mellitus complication status: with circulatory complication Diabetes mellitus complication detail: with peripheral angiopathy without gangrene Qualified Code(s): E11.51 - Type 2 diabetes mellitus with diabetic peripheral angiopathy without gangrene; Z79.4 - local intermodal truck driver (current) use of insulin (6) Dementia: QUALIFIERS: Dementia type: vascular dementia Dementia severity: severe Dementia behavioral or psychological symptom: without behavioral, psychotic, or mood disturbance or anxiety Qualified Code(s): F01.C0 - Vascular dementia, severe, without behavioral disturbance, psychotic disturbance, mood disturbance, and anxiety PLAN: Suspect vascular dementia however there is a FH of dementia in her mother. (7) Cardiomyopathy: QUALIFIERS: Cardiomyopathy type: unspecified Qualified Code(s): I42.9 - Cardiomyopathy, unspecified PLAN: 35-40% EF in January of 2024 with inferior and inferoseptal hypokinesis........likely due to CAD. PLAN: Plan 1. Continue therapy 2. Transitioned to Cozaar today - continue to monitor BP closely 3. If no adverse reactions to Cozaar will add Aricept to the drug regimen prior to DC. 4. Decrease the insulin at supper to 10 units. Increase the AM insulin to 20 units. 5. Add a 3 AM accucheck for the next 2 nights. Charges/Coding Visit Charges Inpatient E&M: 72018 Subs Hosp L1
[2024-03-10 11:18] LABS: Bedside Glucose 185 mg/dL (74-106)
[2024-03-10 17:14] LABS: Bedside Glucose 174 mg/dL (74-106)
[2024-03-10 18:00] VITALS: BP 101/39; PULSE 70; RESP 16; TEMP 36.5; O2SAT 97
[2024-03-10] MEDS: Insulin Human 75/25 Kwickpen 10 UNIT SC (18:07)
[2024-03-10] MEDS: Atorvastatin Calcium 80 MG Tablet PO (21:51)
[2024-03-10] MEDS: PARoxetine 10 MG Tablet PO (21:51)
[2024-03-10 23:09] LABS: Bedside Glucose 141 mg/dL (74-106)
[2024-03-11 03:28] LABS: Bedside Glucose 99 mg/dL (74-106)
[2024-03-11] MEDS: Enoxaparin 40 MG/0.4 ML Syringe SC (05:05)
[2024-03-11] MEDS: Arthritis Pain Compound 60 CLICK TUBE TOPICAL ×2 (05:05→21:56)
[2024-03-11 06:00] VITALS: BP 139/61; PULSE 77; RESP 16; TEMP 36.8; O2SAT 95; BMI 23.3
[2024-03-11 06:51] LABS: Bedside Glucose 103 mg/dL (74-106)
[2024-03-11] MEDS: Potassium Chloride Oral Tablet 10 MEQ PO ×2 (07:54→21:58)
[2024-03-11] MEDS: Cholecalciferol (VIT D3) 25 MCG TABLET (1,000 UNITS) 50 MCG PO (07:54)
[2024-03-11] MEDS: Senna/Docusate Sodium 1 Tablet 2 TABLET PO ×2 (07:54→21:56)
[2024-03-11] MEDS: Calcium Carbonate 500 MG Tablet PO ×2 (07:55→21:58)
[2024-03-11] MEDS: Losartan Potassium 50 MG Tablet PO (07:55)
[2024-03-11] MEDS: Magnesium Chloride 64 MG Delay Rel.Tablet 128 MG PO (07:55)
[2024-03-11] MEDS: Cilostazol 50 MG Tablet PO ×2 (07:55→21:56)
[2024-03-11] MEDS: Aspirin E.C. 81 MG Tablet PO (07:55)
[2024-03-11] MEDS: Multivitamins,Therapeutic Tablet 1 TABLET PO (07:55)
[2024-03-11] MEDS: Insulin Human 75/25 Kwickpen 20 UNIT SC (07:55)
[2024-03-11 11:17] LABS: Bedside Glucose 106 mg/dL (74-106)
[2024-03-11 16:51] LABS: Bedside Glucose 89 mg/dL (74-106)
[2024-03-11] MEDS: Insulin Human 75/25 Kwickpen 10 UNIT SC (17:34)
[2024-03-11 17:40] VITALS: BP 116/63; PULSE 79; RESP 16; TEMP 37; O2SAT 98
[2024-03-11 21:30] VITALS: PULSE 79; RESP 16; O2SAT 98
[2024-03-11] MEDS: Atorvastatin Calcium 80 MG Tablet PO (21:56)
[2024-03-11] MEDS: PARoxetine 10 MG Tablet PO (21:56)
[2024-03-11 22:40] LABS: Bedside Glucose 94 mg/dL (74-106)
[2024-03-12 03:46] LABS: Bedside Glucose 94 mg/dL (74-106)
[2024-03-12] MEDS: Arthritis Pain Compound 60 CLICK TUBE TOPICAL ×2 (05:47→21:20)
[2024-03-12] MEDS: Enoxaparin 40 MG/0.4 ML Syringe SC (05:47)
[2024-03-12 06:00] VITALS: BP 144/60; PULSE 83; RESP 16; TEMP 37; O2SAT 96
[2024-03-12 06:39] LABS: Bedside Glucose 101 mg/dL (74-106)
[2024-03-12] MEDS: Cholecalciferol (VIT D3) 25 MCG TABLET (1,000 UNITS) 50 MCG PO (07:46)
[2024-03-12] MEDS: Calcium Carbonate 500 MG Tablet PO ×2 (07:46→21:22)
[2024-03-12] MEDS: Insulin Human 75/25 Kwickpen 20 UNIT SC (07:46)
[2024-03-12] MEDS: Potassium Chloride Oral Tablet 10 MEQ PO ×2 (07:46→21:21)
[2024-03-12] MEDS: Aspirin E.C. 81 MG Tablet PO (07:46)
[2024-03-12] MEDS: Senna/Docusate Sodium 1 Tablet 2 TABLET PO ×2 (07:46→21:22)
[2024-03-12] MEDS: Cilostazol 50 MG Tablet PO ×2 (07:46→21:23)
[2024-03-12] MEDS: Magnesium Chloride 64 MG Delay Rel.Tablet 128 MG PO (07:47)
[2024-03-12] MEDS: Multivitamins,Therapeutic Tablet 1 TABLET PO (07:47)
[2024-03-12] MEDS: Losartan Potassium 50 MG Tablet PO (07:47)
[2024-03-12 09:06] LABS: Anion Gap 6 (5-15); BUN 7 mg/dL (7-18); BUN/Creat Ratio 20.2 RATIO (10-20); Calcium,Total 9.1 mg/dL (8.5-10.1); Chloride 110 mmol/L (98-107); Creatinine, Serum 0.35 mg/dL (0.55-1.02); EST Glomerular Filtration Rate 194 mL/min (>60); Est Glom Filt Rate - Afr Amer 235 mL/min (>60); Estimated Creatinine Clearance 53.83 ml/min; Glucose 164 mg/dL (74-106); Potassium 3.6 mmol/L (3.5-5.1); Sodium Level 142 mmol/L (136-145)
[2024-03-12 11:32] LABS: Bedside Glucose 122 mg/dL (74-106)
[2024-03-12 16:12] LABS: Bedside Glucose 116 mg/dL (74-106)
[2024-03-12 16:51] VITALS: BP 109/57; PULSE 88; RESP 17; TEMP 36.2; O2SAT 97
[2024-03-12] MEDS: Insulin Human 75/25 Kwickpen 10 UNIT SC (17:11)
[2024-03-12] MEDS: Atorvastatin Calcium 80 MG Tablet PO (21:21)
[2024-03-12] MEDS: PARoxetine 10 MG Tablet PO (21:21)
[2024-03-13 00:29] LABS: Bedside Glucose 140 mg/dL (74-106)
[2024-03-13 03:33] LABS: Bedside Glucose 91 mg/dL (74-106)
[2024-03-13] MEDS: Enoxaparin 40 MG/0.4 ML Syringe SC (05:37)
[2024-03-13] MEDS: Arthritis Pain Compound 60 CLICK TUBE TOPICAL ×2 (05:38→20:33)
[2024-03-13 06:00] VITALS: BP 108/52; PULSE 55; RESP 16; TEMP 36.3; O2SAT 96
[2024-03-13 07:40] LABS: Bedside Glucose 105 mg/dL (74-106)
[2024-03-13] MEDS: Insulin Human 75/25 Kwickpen 20 UNIT SC (07:41)
[2024-03-13] MEDS: Calcium Carbonate 500 MG Tablet PO ×2 (07:41→20:32)
[2024-03-13] MEDS: Magnesium Chloride 64 MG Delay Rel.Tablet 128 MG PO (07:42)
[2024-03-13] MEDS: Multivitamins,Therapeutic Tablet 1 TABLET PO (07:42)
[2024-03-13] MEDS: Potassium Chloride Oral Tablet 10 MEQ PO ×2 (07:42→17:12)
[2024-03-13] MEDS: Losartan Potassium 50 MG Tablet PO (07:42)
[2024-03-13] MEDS: Cilostazol 50 MG Tablet PO ×2 (07:42→20:32)
[2024-03-13] MEDS: Cholecalciferol (VIT D3) 25 MCG TABLET (1,000 UNITS) 50 MCG PO (07:42)
[2024-03-13] MEDS: Aspirin E.C. 81 MG Tablet PO (07:42)
[2024-03-13] MEDS: Senna/Docusate Sodium 1 Tablet 2 TABLET PO ×2 (07:43→20:32)
--- NOTE | 2024-03-13 12:17 | PN_ITS ---
Subjective Subjective Afebrile VSS - Maintaining appropriate oxygen saturation on RA Oral intake - FOOD good FLUIDS variable. She will drink water but she needs to constantly be reminded. Discussed with nursing - no problems that need addressed. Has been cooperative and pleasant with no behavioral symptoms. Reviewed the THERAPY notes Medication list reviewed. Denies any complaints. Specifically denies chest pain, lightheadedness, shortness of breath, calf pain and dysuria. Objective Data Objective Data Vital Signs: Vital Signs Temp Pulse Resp BP Pulse Ox O2 Del Method 97.3 F L 55 L 16 108/52 L 96 Room Air 03/13/24 06:00 03/13/24 06:00 03/13/24 06:00 03/13/24 06:00 03/13/24 06:00 03/13/24 06:00 Oxygen Delivery Method Room Air Weight: 140 lb 3.424 oz Body Mass Index (BMI) 23.3 Intake & Output: Intake and Output for Last 24 Hours 03/11/24 03/12/24 03/13/24 23:59 23:59 23:59 Intake Total 2460 / 2460 1930 / 1930 600 / 600 Output Total 400 / 400 800 / 800 200 / 200 Balance 0 / 2060 1130 / 1130 400 / 400 Lab / Micro Data 03/16/24 05:04 03/16/24 05:04 Labs: Laboratory Results - last 24 hr 03/12/24 15:52: POC Glucose 116 H 03/12/24 21:39: POC Glucose 140 H 03/13/24 03:14: POC Glucose 91 03/13/24 07:21: POC Glucose 105 Physical Exam Const alert Orientation / Consciousness: confused Resp clear to auscultation bilaterally Resp Narrative: No conversational dyspnea Effort and Inspection: Negative for tachypneic Auscultation: diminished lung sounds Cardio regular rate, regular rhythm and no gallops GI normal to inspection, nondistended, normoactive bowel sounds, soft to palpation and non-tender GI Narrative: No guarding with palpation Extremity no calf tenderness General Extremity: Negative for edema Skin General Skin Exam: no breakdown Rashes: no rashes Assessment & Plan Assessment/Plan (1) Debility: (2) Stroke/cerebrovascular accident: QUALIFIERS: CVA mechanism: unspecified Qualified Code(s): I63.9 - Cerebral infarction, unspecified (3) Urine retention: (4) Diabetes mellitus, type 2: QUALIFIERS: Diabetes mellitus group home insulin use: with group home use Diabetes mellitus complication status: with circulatory complication Diabetes mellitus complication detail: with peripheral angiopathy without gangrene Qualified Code(s): E11.51 - Type 2 diabetes mellitus with diabetic peripheral angiopathy without gangrene; Z79.4 - [facility] (current) use of insulin (5) Dementia: QUALIFIERS: Dementia type: vascular dementia Dementia severity: s evere Dementia behavioral or psychological symptom: without behavioral, psychotic, or mood disturbance or anxiety Qualified Code(s): F01.C0 - Vascular dementia, severe, without behavioral disturbance, psychotic disturbance, mood disturbance, and anxiety (6) Cardiomyopathy: QUALIFIERS: Cardiomyopathy type: unspecified Qualified Code(s): I 42.9 - Cardiomyopathy, unspecified (7) QT prolongation: (8) Left bundle branch block: (9) Left atrial enlargement: (10) Peripheral vascular disease: PLAN: Plan 1. Continue therapy 2. Decrease the 75/25 insulin at supper to 8 units 3. Increase the potassium to 10 mEq 3 times daily with meals 4. Recheck a CBC and BMP on Saturday. 5. Check an EKG today. If there is no QT prolongation will start Aricept 5 mg p.o. nightly and repeat an EKG 4 to 5 days after starting Aricept. Charges/Coding Visit Charges Inpatient E&M: 14992 Subs Hosp L1
[2024-03-13 12:26] LABS: Bedside Glucose 154 mg/dL (74-106)
--- NOTE | 2024-03-13 12:26 | EKG12_ITS ---
Test Reason : CVA Blood Pressure : / mmHG Vent. Rate : 085 BPM Atrial Rate : 085 BPM P-R Int : 198 ms QRS Dur : 156 ms QT Int : 466 ms P-R-T Axes : 066 -11 109 degrees QTc Int : 554 ms Normal sinus rhythm Left bundle branch block Abnormal ECG When compared with ECG of 03-DEC-2008 06:17, MANUAL COMPARISON REQUIRED, DATA IS UNCONFIRMED Confirmed by Yung De Jesus ([id number]), film editor CAROLYNN LADD ([id number]) on 03/17/2024 7:43:36 AM Referred By: RAMBO Confirmed By:Yung De Jesus
[2024-03-13 16:29] LABS: Bedside Glucose 173 mg/dL (74-106)
[2024-03-13] MEDS: Insulin Human 75/25 Kwickpen 10 UNIT SC (17:13)
[2024-03-13 17:30] VITALS: BP 143/68; PULSE 78; RESP 16; TEMP 36.2; O2SAT 98
[2024-03-13] MEDS: PARoxetine 10 MG Tablet PO (20:32)
[2024-03-13] MEDS: Atorvastatin Calcium 80 MG Tablet PO (20:32)
[2024-03-13 22:22] LABS: Bedside Glucose 125 mg/dL (74-106)
[2024-03-14] MEDS: Arthritis Pain Compound 60 CLICK TUBE TOPICAL ×2 (05:07→21:12)
[2024-03-14] MEDS: Enoxaparin 40 MG/0.4 ML Syringe SC (05:07)
[2024-03-14 05:11] VITALS: BP 127/57; PULSE 72; RESP 16; TEMP 36.8; O2SAT 95
[2024-03-14 07:23] LABS: Bedside Glucose 104 mg/dL (74-106)
[2024-03-14] MEDS: Senna/Docusate Sodium 1 Tablet 2 TABLET PO ×2 (07:54→21:11)
[2024-03-14] MEDS: Multivitamins,Therapeutic Tablet 1 TABLET PO (07:54)
[2024-03-14] MEDS: Cilostazol 50 MG Tablet PO ×2 (07:54→21:11)
[2024-03-14] MEDS: Cholecalciferol (VIT D3) 25 MCG TABLET (1,000 UNITS) 50 MCG PO (07:54)
[2024-03-14] MEDS: Losartan Potassium 50 MG Tablet PO (07:54)
[2024-03-14] MEDS: Magnesium Chloride 64 MG Delay Rel.Tablet 128 MG PO (07:54)
[2024-03-14] MEDS: Calcium Carbonate 500 MG Tablet PO ×2 (07:54→21:12)
[2024-03-14] MEDS: Aspirin E.C. 81 MG Tablet PO (07:54)
[2024-03-14] MEDS: Potassium Chloride Oral Tablet 10 MEQ PO ×3 (07:54→17:05)
[2024-03-14] MEDS: Insulin Human 75/25 Kwickpen 20 UNIT SC (07:59)
[2024-03-14 11:40] LABS: Bedside Glucose 92 mg/dL (74-106)
[2024-03-14] MEDS: Insulin Human 75/25 Kwickpen 10 UNIT SC (17:04)
[2024-03-14 17:20] LABS: Bedside Glucose 154 mg/dL (74-106)
[2024-03-14 18:00] VITALS: BP 108/82; PULSE 100; RESP 18; TEMP 36.6; O2SAT 96
[2024-03-14] MEDS: Atorvastatin Calcium 80 MG Tablet PO (21:11)
[2024-03-14] MEDS: PARoxetine 10 MG Tablet PO (21:11)
[2024-03-14 21:26] LABS: Bedside Glucose 144 mg/dL (74-106)
[2024-03-15 06:00] VITALS: BP 121/55; PULSE 79; RESP 16; TEMP 36.6; O2SAT 96
[2024-03-15] MEDS: Enoxaparin 40 MG/0.4 ML Syringe SC (06:36)
[2024-03-15] MEDS: Arthritis Pain Compound 60 CLICK TUBE TOPICAL ×2 (06:36→21:15)
[2024-03-15 06:52] LABS: Bedside Glucose 94 mg/dL (74-106)
[2024-03-15 08:35] VITALS: BP 115/46; PULSE 85
[2024-03-15] MEDS: Insulin Human 75/25 Kwickpen 20 UNIT SC (08:39)
[2024-03-15] MEDS: Potassium Chloride Oral Tablet 10 MEQ PO ×3 (08:41→17:10)
[2024-03-15] MEDS: Multivitamins,Therapeutic Tablet 1 TABLET PO (08:41)
[2024-03-15] MEDS: Losartan Potassium 50 MG Tablet PO (08:41)
[2024-03-15] MEDS: Cilostazol 50 MG Tablet PO ×2 (08:42→21:16)
[2024-03-15] MEDS: Aspirin E.C. 81 MG Tablet PO (08:42)
[2024-03-15] MEDS: Magnesium Chloride 64 MG Delay Rel.Tablet 128 MG PO (08:42)
[2024-03-15] MEDS: Senna/Docusate Sodium 1 Tablet 2 TABLET PO (08:42)
[2024-03-15] MEDS: Cholecalciferol (VIT D3) 25 MCG TABLET (1,000 UNITS) 50 MCG PO (08:43)
[2024-03-15] MEDS: Calcium Carbonate 500 MG Tablet PO ×2 (08:43→21:17)
[2024-03-15 11:58] LABS: Bedside Glucose 82 mg/dL (74-106)
[2024-03-15] MEDS: Insulin Human 75/25 Kwickpen 10 UNIT SC (17:10)
[2024-03-15 17:21] LABS: Bedside Glucose 248 mg/dL (74-106)
[2024-03-15 18:10] VITALS: BP 109/44; PULSE 98; RESP 17; TEMP 36.6; O2SAT 94
[2024-03-15] MEDS: Atorvastatin Calcium 80 MG Tablet PO (21:16)
[2024-03-15] MEDS: PARoxetine 10 MG Tablet PO (21:16)
[2024-03-15 21:40] LABS: Bedside Glucose 375 mg/dL (74-106)
[2024-03-15] MEDS: Insulin Lispro 100 UNIT/ML INSULN.PEN SC (22:18)
[2024-03-16 05:42] VITALS: BP 102/46; PULSE 74; RESP 16; TEMP 36.7; O2SAT 98
[2024-03-16] MEDS: Enoxaparin 40 MG/0.4 ML Syringe SC (05:55)
[2024-03-16] MEDS: Arthritis Pain Compound 60 CLICK TUBE TOPICAL ×2 (05:55→21:00)
[2024-03-16 06:11] LABS: Hematocrit 35.7 % (37-47); Hemoglobin 12.1 g/dL (12.0-15.0); Mean Corp Hgb Conc 33.9 g/dL (32-36); Mean Corpuscular Volume 88.6 fL (81-99); Mean Platelet Vol. 11.3 fl (6.2-12.0); Platelet Count 170 K/mm3 (150-450); RBC Distribution Width CV 13.4 % (11.6-14.6); RBC Distribution Width SD 43.7 fl (35.1-43.9); Red Blood Count 4.03 M/mm3 (4.2-5.4); White Blood Count 5.8 K/mm3 (4.4-11.0)
[2024-03-16 06:20] LABS: Bedside Glucose 131 mg/dL (74-106)
[2024-03-16 06:40] LABS: Anion Gap 7 (5-15); BUN 11 mg/dL (7-18); BUN/Creat Ratio 26.1 RATIO (10-20); Calcium,Total 9.1 mg/dL (8.5-10.1); Chloride 109 mmol/L (98-107); Creatinine, Serum 0.42 mg/dL (0.55-1.02); EST Glomerular Filtration Rate 155 mL/min (>60); Est Glom Filt Rate - Afr Amer 188 mL/min (>60); Estimated Creatinine Clearance 53.83 ml/min; Glucose 148 mg/dL (74-106); Potassium 3.6 mmol/L (3.5-5.1); Sodium Level 140 mmol/L (136-145)
[2024-03-16] MEDS: Calcium Carbonate 500 MG Tablet PO ×2 (08:00→21:01)
[2024-03-16] MEDS: Aspirin E.C. 81 MG Tablet PO (08:00)
[2024-03-16] MEDS: Cholecalciferol (VIT D3) 25 MCG TABLET (1,000 UNITS) 50 MCG PO (08:00)
[2024-03-16] MEDS: Cilostazol 50 MG Tablet PO ×2 (08:00→21:01)
[2024-03-16] MEDS: Insulin Human 75/25 Kwickpen 26 UNIT SC (08:01)
[2024-03-16] MEDS: Magnesium Chloride 64 MG Delay Rel.Tablet 128 MG PO (08:01)
[2024-03-16] MEDS: Potassium Chloride Oral Tablet 10 MEQ PO (08:01)
[2024-03-16] MEDS: Multivitamins,Therapeutic Tablet 1 TABLET PO (08:01)
[2024-03-16] MEDS: Losartan Potassium 50 MG Tablet PO (08:01)
--- NOTE | 2024-03-16 11:28 | PCM.PROGNOTE ---
Subjective Subjective Manuelito was seen on team rounds today. Her family was present in the room. All questions were answered to their satisfaction. The family would like to take her out of the hospital tomorrow and transport her and her and went to [place] where they are going to reside going forward. Afebrile VSS - Maintaining appropriate oxygen saturation on RA Oral intake - FOOD excellent FLUIDS variable, oral fluid intake yesterday was 780 but on 03/14/2024 was 1920. The blood sugar record was reviewed. Fasting blood sugar was good yesterday a.m. at 94. At supper it was 248 and at bedtime was 375. She was given 5 units of lispro at bedtime and the fasting blood sugar today is 131. Blood sugars had been well-controlled but I was told by nursing that she had a lot of candy wrappers in her wastebasket yesterday. Discussed with nursing - no problems that need addressed. She is incontinent of urine but, not incontinent of stool Reviewed the THERAPY notes Medication list reviewed. All lab drawn this morning was personally reviewed. The white blood cell count is normal at 5.8. Hemoglobin is stable at 12.1. Platelets are within normal limits. Sodium is 140 and the potassium is 3.6. BUN is 11 with a stable creatinine of 0.42. Calcium is within normal limits. I personally reviewed the EKG and she has normal sinus rhythm with a left bundle branch block. QT interval is 466 with a QTc of 554 ms WHICH IS PROLONGED. Coreen denies lightheadedness, cephalgia, shortness of breath, cough, chest pain, nausea/vomiting/abdominal pain, burning with urination and calf pain. She has no complaints. Objective Data Objective Data Vital Signs: Vital Signs Temp Pulse Resp BP Pulse Ox O2 Del Method 98.1 F 74 16 102/46 L 98 Room Air 03/16/24 05:42 03/16/24 05:42 03/16/24 05:42 03/16/24 05:42 03/16/24 05:42 03/16/24 05:42 Oxygen Delivery Method Room Air Weight: 140 lb 3.424 oz Body Mass Index (BMI) 23.3 Intake & Output: Intake and Output for Last 24 Hours 03/14/24 03/15/24 03/16/24 23:59 23:59 23:59 Intake Total 1920 / 1920 780 / 780 240 / 240 Output Total 600 / 600 200 / 600 700 / 700 Balance 1320 / 1320 580 / 180 -460 / -460 Lab / Micro Data 03/16/24 05:04 03/16/24 05:04 Labs: Laboratory Results - last 24 hr 03/15/24 11:39: POC Glucose 82 03/15/24 17:00: POC Glucose 248 H 03/15/24 21:22: POC Glucose 375 H 03/16/24 05:04: WBC 5.8, RBC 4.03 L, Hgb 12.1, Hct 35.7 L, MCV 88.6, MCH 30.0, MCHC 33.9, RDW Std Deviation 43.7, RDW Coeff of Benjamin 13.4, Plt Count 170, MPV 11.3, Sodium 140, Potassium 3.6, Chloride 109 H, Carbon Dioxide 24.0, Anion Gap 7, BUN 11, Creatinine 0.42 L, Estim Creat Clear Calc 53.83, Est GFR (MDRD) Af Amer 188, Est GFR (MDRD) Non-Af 155, BUN/Creatinine Ratio 26.1 H, Glucose 148 H, Calcium 9.1 03/16/24 06:01: POC Glucose 131 H Physical Exam Const alert and no apparent distress Constitutional Narrative: She remembers to look at the info on the wall by her recliner to orient herself but, can not tell me, without looking, anything but her name. She is pleasant and cooperative. Always willing to work with therapy. Not restless and no agitation. General Appearance: cooperative and well developed Orientation / Consciousness: confused HEENT HEENT Narrative: MM are a little dry. Resp normal respiratory effort and clear to auscultation bilaterally Resp Narrative: Mildly diminished throughout. Effort and Inspection: Negative for tachypneic, respiratory distress or labored Auscultation: diminished lung sounds bilateral (mild, mikhail in the bases. ) Cardio regular rate, regular rhythm, S1 normal heart sound, S2 normal heart sound, no murmurs, no rub and no gallops Cardio Narrative: No ectopy GI normal to inspection, nondistended, normoactive bowel sounds, soft to palpation and non-tender GI Narrative: No guarding with palpation Extremity no calf tenderness Extremity Narrative: Both feet are warm to the touch. General Extremity: Negative for clubbing, cyanosis or edema Skin no wounds General Skin Exam: no breakdown and dry skin Rashes: no rashes Psych cooperative Psych Narrative: Does not seem anxious or depressed. Always pleasant and cooperative. Appearance: appropriate Assessment & Plan Assessment/Plan (1) Debility: (2) Stroke/cerebrovascular accident: QUALIFIERS: CVA mechanism: unspecified Qualified Code(s): I63.9 - Cerebral infarction, unspecified (3) Cognitive changes: (4) Urine retention: (5) Diabetes mellitus, type 2: QUALIFIERS: Diabetes mellitus complication detail: with peripheral angiopathy without gangrene Diabetes mellitus complication status: with circulatory complication Diabetes mellitus rn long term care insulin use: with rn long term care use Qualified Code(s): E11.51 - Type 2 diabetes mellitus with diabetic peripheral angiopathy without gangrene; Z79.4 - [facility] (current) use of insulin (6) Dementia: QUALIFIERS: Dementia behavioral or psychological symptom: without behavioral, psychotic, or mood disturbance or anxiety Dementia severity: severe Dementia type: vascular dementia Qualified Code(s): F01.C0 - Vascular dementia, severe, without behavioral disturbance, psychotic disturbance, mood disturbance, and anxiety (7) Cardiomyopathy: QUALIFIERS: Cardiomyopathy type: unspecified Qualified Code(s): I42.9 - Cardiomyopathy, unspecified (8) QT prolongation: PLAN: Plan 1. Continue therapy 2. AM 70/25 insulin was increased to 26 units today. Will continue to monitor blood sugars ACHS 3. She has QT prolongation. K and MAG are WNL with supplementation. Can not use Aricept or Namenda due to the QT prolongation. Even on K 10 MEQ TID the K is 3.6. With QT prolongation I would rather see the K closer to 4. Will change the K supplement to 20 MEQ's BID and recheck the potassium in a few days. Will plan on discharging tomorrow. She will be going to live with family in [place]. RX's to be sent to [facility] in [place]. Charges/Coding Visit Charges Inpatient E&M: 72338 Subs Hosp L2
[2024-03-16 11:30] LABS: Bedside Glucose 176 mg/dL (74-106)
--- NOTE | 2024-03-16 12:43 | CASEMGMT ---
Addendum entered by Adelia Gipson 03/19/24 10:05: Correction: DC 03/17 Original Note: Social Work IDT met with patient and multiple family members for Team meeting. Discussed patient's progress in PT/OT/ST/SN. Educated to [facility] insurance with NRD 03/18 and continued stay is not guaranteed with each review. Discussed DC plans. Dtr and family have made a decision to DC pt to family's home in [place] to be with and receive / care - no SNF. SW educated since pt is transferring out of state, this worker cannot coordinate ongoing therapy for pt. Educated to getting established with PCP and PCP can order needs. Pt does not have DME needs. Dtr expressed understanding and will notify nursing of PCP contact information. Dtr is requesting to DC 03/17 as she is running low on vacation days from work. agreed to DC date. Dtr to transport. Plan: DC 03/16 to [place] with family receiving 24/7 care, no needs coordinated. MIGUEL Amaya RECRUITMENT SPECIALIST
--- NOTE | 2024-03-16 14:02 | PCM.DC ---
Discharge Instructions Diet Discharge Diet: - (No concentrated sweets. Avoid too many carbs at one time. Sugar free candy can still increase the blood sugar if you eat too much of it. ) Activity Discharge Activity: May Not Drive, May Shower and Use Walker Weight Bearing Status: Full weight bearing Follow Up Care When: You will get a new Primary care doctor in [place]. I would be happy to talk with your new doctor when you find one and update them on your condition. Test Results: Test results from this visit will be discussed in further detail at your follow-up appointment, if applicable. Discharge Plan Admission Admit Date/Time: 03/04/24 21:30 Primary Reason for Your Visit: POST STROKE DEBILITY. Attending Provider: Nelly Gomes Primary Care Provider: Jose Rutledge Instructions Additional Instructions / Restrictions: 1. You may want to consider seeing a neurologist in [place]. You have vascular dementia/Alzheimer's and there is treatment for some types of dementia to help slow down the memory loss. 2. Your heart does not squeeze quite as hard as it should and this is called a cardiomyopathy. You had an ultra sound of you your Heart at [facility] and it showed that the wall of the inferior and infero/septal area of the heart that does not squeeze well.......I suspect you may have had a heart attack in the past. The upper left chamber (called the left atrium is dilated and this can lead to a problem with the rhythm of the heart called AFIB. AFIB can cause strokes. I would advise you to see a environmental compliance manager in [place]. You may need to wear a heart monitor for a couple of weeks to make sure that you are not having AFIB. IF you do have AFIB you would need to be on an bloiod thinner to help prevent strokes in the future. 3. You blood pressure is well controlled and your diabetes is usually pretty well controlled, unless you eat too much candy. Try and not eat too much candy, even sugar free, at once time. 4. We have all enjoyed having you on rehab and I think you have made some good improvement. You have a wonderful attitude and you are always so nice to everyone. I hope you do well in your new home and you and Malcolm are happy together. IF you or your family have any questions after you leave rehab please do not hesitate to call me. OFFICE: [phone] CELL: [phone] Discharge Orders/Prescriptions Prescriptions: New insulin lispro protamin-lispro [Humalog Mix 75-25 KwikPen] 100 unit/mL (75-25) insulin pen See Rx Instructions .ROUTE .COMPLEX Qty: 5 0RF Rx Instructions: 26 units with breakfast and 10 units with supper losartan 50 mg Tablet 50 mg PO DAILY Qty: 30 0RF magnesium chloride [Mag 64] 64 mg Tablet,Delayed Release (Dr/Ec) 128 mg PO DAILY Qty: 30 0RF potassium chloride 20 mEq Tablet,Er Particles/Crystals 20 meq PO BIDCM Qty: 60 0RF cholecalciferol (vitamin D3) [Vitamin D3] 10 mcg (400 unit) tablet 10 mcg PO BID Qty: 60 0RF calcium carbonate [Tums] 200 mg calcium (500 mg) tablet,chewable 200 mg PO BID Qty: 60 0RF Rx Instructions: Chew 1 TUMS twice a day Continued multivitamin [Multiple Vitamins] Tablet 1 tab PO DAILY aspirin [Adult Low Dose Aspirin] 81 mg tablet,delayed release (DR/EC) 81 mg PO DAILY paroxetine HCl [Paxil] 10 mg tablet 15 mg PO DAILY Qty: 30 0RF cilostazol 50 mg tablet 50 mg PO BID Qty: 60 0RF rosuvastatin [Crestor] 40 mg tablet 40 mg PO QHS Qty: 30 0RF Rx Instructions: Take this at bedtime Discontinued amlodipine 5 mg tablet 5 mg PO DAILY amoxicillin 250 mg capsule 500 mg PO TID calcium carbonate [Calcium 500] 500 mg calcium (1,250 mg) tablet,chewable 500 mg PO BID cholecalciferol (vitamin D3) [D3-2000] 50 mcg (2,000 unit) capsule 50 mcg PO DAILY potassium chloride [Klor-Con 10] 10 mEq tablet extended release 10 meq PO BID Referrals / Follow Up: Conner Wyatt-neurology [Other] - 04/07/24 11:00 am Disposition Disposition (needs filled in before D/C Order can be placed): Home, Self Care
--- NOTE | 2024-03-16 14:58 | EX.DISCHREH ---
Providers Date of Admission: 03/04/24 Date of Discharge: 03/17/24 Primary Care Physician: Will have to establish with a new PCP in [place]. She is moving in with family in [place]. none Reason For Visit: STROKE Diagnosis Discharge Diagnosis (1) Debility: Status: Acute Code(s): R53.81 - Other malaise (2) Stroke/cerebrovascular accident: Status: Acute Code(s): I63.9 - Cerebral infarction, unspecified Qualifiers: CVA mechanism: unspecified Qualified Code(s): I63.9 - Cerebral infarction, unspecified (3) Urine retention: Status: Resolved Code(s): R33.9 - Retention of urine, unspecified (4) Diabetes mellitus, type 2: Status: Chronic Code(s): E11.9 - Type 2 diabetes mellitus without complications Qualifiers: Diabetes mellitus complication detail: with peripheral angiopathy without gangrene Diabetes mellitus complication status: with circulatory complication Diabetes mellitus regional intermodal truck driver insulin use: with fci use Qualified Code(s): E11.51 - Type 2 diabetes mellitus with diabetic peripheral angiopathy without gangrene; Z79.4 - termite exterminator (current) use of insulin (5) Dementia: Status: Chronic Code(s): F03.90 - Unspecified dementia, unspecified severity, without behavioral disturbance, psychotic disturbance, mood disturbance, and anxiety Qualifiers: Dementia behavioral or psychological symptom: without behavioral, psychotic, or mood disturbance or anxiety Dementia severity: severe Dementia type: vascular dementia Qualified Code(s): F01.C0 - Vascular dementia, severe, without behavioral disturbance, psychotic disturbance, mood disturbance, and anxiety Plan: Vascular/Alzheimer dementia. Can not start Aricept or Namenda due to QT prolongation. Recommend follow up with neurology in [place]. She may benefit from one of the newer infusion treatments for dementia and she will need follow up for the stroke. (6) Cardiomyopathy: Status: Chronic Code(s): I42.9 - Cardiomyopathy, unspecified Qualifiers: Cardiomyopathy type: unspecified Qualified Code(s): I42.9 - Cardiomyopathy, unspecified Plan: EF is 35-40% with hypokinesis of the inferior and infero/septal areas. Suspect ischemic cardiomyopathy. She also has a dilated left atrium. Hss been in normal sinus rhythm while on rehab but, should have an event monitor at some point to r/o AF. She is a vasculopath and has PVD as well as cerebrovascular disease. To her knowledge she has never been evaluated for CAD. Lungs are CTA and she has no peripheral edema at the time of DC. BP is controlled. She is on a ARB. Has not needed a diuretic. (7) QT prolongation: Status: Chronic Code(s): R94.31 - Abnormal electrocardiogram [ECG] [EKG] Plan: The QTc is 554 with a normal Potassium and magnesium at DC from rehab. Avoid QT prolonging medications and keep the potassium around 4 and the magnesium around 2. This will also help to prevent AF. (8) Left bundle branch block: Status: Chronic Code(s): I44.7 - Left bundle-branch block, unspecified (9) Left atrial enlargement: Status: Chronic Code(s): I51.7 - Cardiomegaly (10) Peripheral vascular disease: Status: Chronic Code(s): I73.9 - Peripheral vascular disease, unspecified Plan: She will continue Pletal. Claudication resolved with Pletal. (11) Chronic combined systolic and diastolic CHF (congestive heart failure): Status: Chronic Code(s): I50.42 - Chronic combined systolic (congestive) and diastolic (congestive) heart failure Plan: Stable and asymptomatic at the time of DC from rehab. (12) Hypertension: Status: Chronic Code(s): I10 - Essential (primary) hypertension Qualifiers: Hypertension type: primary hypertension Qualified Code(s): I10 - Essential (primary) hypertension Plan: Continue Cozaar 50 mg daily (13) Hyperlipidemia: Status: Chronic Code(s): E78.5 - Hyperlipidemia, unspecified Qualifiers: Hyperlipidemia type: unspecified Qualified Code(s): E78.5 - Hyperlipidemia, unspecified Plan: Resume Crestor 40 mg daily. (14) Tobacco dependence due to cigarettes: Status: Acute Code(s): F17.210 - Nicotine dependence, cigarettes, uncomplicated Plan: Smoking cessation counseling was given in rehab. She declined a nicotine patch. I am hopeful that she will not resume smoking following discharge from rehab. Plan 1. DC tomorrow. She will be relocating to live with family in [place]. Family requested early DC so that she and her can relocate together. Medications at Discharge Home Medications multivitamin (Multiple Vitamins tablet) 1 tab PO DAILY supplement 04/16/23 aspirin 81 mg tablet,delayed release (Adult Low Dose Aspirin) 81 mg PO DAILY stroke 03/04/24 calcium carbonate (Tums) 200 mg PO BID #60 tabs 03/16/24 cholecalciferol (vitamin D3) 10 mcg (400 unit) tablet (Vitamin D3) 10 mcg PO BID #60 tabs 03/16/24 cilostazol 50 mg tablet 50 mg PO BID blood #60 tabs 03/16/24 insulin lispro protamine-lispro 100 unit/mL (75-25) subcutaneous pen (Humalog Mix 75-25 KwikPen) See Rx Instructions .Route .COMPLEX #5 pens 03/16/24 losartan 50 mg tablet 50 mg PO DAILY #30 tabs 03/16/24 magnesium chloride 64 mg (magnesium chloride) tablet,delayed release (Mag 64) 128 mg (2 x 64 mg) PO DAILY #30 tabs 03/16/24 paroxetine HCl 10 mg tablet (Paxil) 15 mg (1.5 x 10 mg) PO DAILY mood #30 tabs 03/16/24 potassium chloride 20 mEq tablet,extended release(part/cryst) 20 meq PO BIDCM #60 tabs 03/16/24 rosuvastatin 40 mg tablet (Crestor) 40 mg PO QHS cholesterol #30 tabs 03/16/24 Hospital Course Operations None Procedures None Summary of Care Provided Minutes Spent on Discharge: 45 Hospital Course: Damaris Paul) is a 74 YO female with a PMH of DM II on insulin, HTN, HLD, chronic back pain, degenerative disc disease, chronic combined systolic and diastolic congestive heart failure with a left ventricular ejection fraction estimated at 35 to 40%, diabetic polyneuropathy, osteoporosis, PVD (on Pletal for claudication), depression, tobacco dependence and IBS who presented to the ED at [facility] on 03/01/2024 by squad with hypoglycemia, hypothermia and cognitive impairment. She became more alert after IV glucose but, she was still more confused than at her baseline. A NC CT brain showed no acute pathology but, there was mild to moderate volume loss with scattered hypodensities throughout the periventricular white matter most likely consistent with chronic small vessel angiopathy. Chest x-ray showed no pleural effusions, no pulmonary vascular congestion and no infiltrates. The urine had 10-15 white blood cells and 1+ bacteria. Her lactic acid was elevated at 2.5 and blood cultures were sent. Potassium was low at 2.4 (she was taking a diuretic). She was given Rocephin in the emergency room department. Blood cultures showed 2 of 2 cultures positive for gram-positive cocci in clusters but, we were never able to obtain the results of the blood cultures from [facility]. Urine culture grew Enterococcus faecalis and she was transitioned from Rocephin to amoxicillin. A brain MRI was done on and showed a small chronic lacunar infarct in the right basal ganglion which was not present on an MRI done on 01/21/2024. She had an echocardiogram done at [facility] that showed a negative bubble contrast study for right to left shunt. Ejection fraction was 35 to 40% and she had wall motion abnormality in the inferior wall and the inferoseptal area. The left atrium was dilated. She was transferred to the acute inpatient rehab unit at [facility] on 03/04/2024 for 3 hours of therapy daily to restore function/independence at or near her level prior to the recent stroke. She was living independently with her , Malcolm, who is debilitated. NIHSS score was 3 at presentation to rehab for mild to moderate aphasia mild right leg drift and she was only able to answer one of the 2 level of consciousness questions. She was oriented to person only at the time of admission. She could not recall her age. When ambulating she was veering to the R at times, mikhail when tired. PT/OT and ST were ordered. The speech therapist administered the brief cognitive assessment test and out of a possible 50 points she scored only 12. Her family knew that her memory was declining but, not to the the extent that the BCAT showed. Lungs were CTA at admission but, they were mildly diminished throughout. She denies SOB and orthopnea. She was dehydrated at admission to rehab. HCTZ for HTN was discontinued and she was started on Cozaar for Cardiomyopathy and preservation of renal function in a LT diabetic. TSH and B12 were normal. She was started on a magnesium supplement to keep the Mag around 2. Despite discontinuation of HCTZ The potassium remained low, even though she was taking 10 MEQ BID. The potassium supplement was increased to 10 mg TID but, K was still only 3.6 and with the LAE and prolonged QT interval would prefer to keep the K around 4 so the supplement was changed to KDUR 20 MEQ BID. Manuelito's stay on rehab was uneventful with no adverse complications. Insulin was adjusted as needed and the BS's prior to discharge are well controlled with no hypoglycemia. At the time of discharge Manuelito is supervision/set up for eating, grooming and upper body dressing. She is standby assist for toilet transfer, toileting, lower body dressing and tub/shower transfer. She requires minimal assistance with bathing. She has ambulated up to 330 feet with a front wheeled walker at standby assist/contact-guard assist. She veers to the right at times, especially when fatiguing. She is able to do 7 sit to stands at standby assist using the bilateral upper extremities to rise from the chair. She is able to ascend/descend two 6 inch steps with a front wheel walker at contact-guard assist to ascend and min assist to descend. Manuelito was discharged from acute rehab on 03/17/24 and will be moving to [place] to live with her in-laws. She has severe dementia. We were unable to start Aricept or Namenda due to QT prolongation. She may be a candidate for other medications to treat dementia. would consider consulting with a neurologist after she arrives in [place]. I also would recommend follow up with cardiology for cardiomyopathy with wall motion abnormalities (more likely than not ischemic) and for an event monitor to exclude PAF as the etiology of the stroke since she has LAE and a CM. Would keep the K at around 4 and the Mag at around 2 to decrease risk of cardiac dysrhythmias secondary to electrolyte imbalance. At the time of discharge she is not on a diuretic and the lungs are clear to auscultation with no peripheral edema. He has no shortness of breath with exertion and she has no orthopnea. Physical Exam Const alert and no apparent distress Constitutional Narrative: Pleasant and talkative. She is oriented to person and she knows where to look in her room to find the day, time, month, year and her age. General Appearance: cooperative and well kempt Orientation / Consciousness: confused HEENT head/scalp atraumatic and hearing grossly normal bilaterally HEENT Narrative: MM are a little dry. Eyes PERRL, EOMs intact bilaterally, conjunctivae normal and no scleral icterus Eyes Narrative: No discharge from the eyes. General Eye: normal appearance of both eyes Neck no JVD, No nodes and no carotid bruits General: trachea midline Chest Chest: symmetrical chest wall rise Resp normal respiratory effort and clear to auscultation bilaterally Resp Narrative: Mildly diminished throughout. No conversational dyspnea. Effort and Inspection: Negative for tachypneic, respiratory distress or labored Auscultation: diminished lung sounds bilateral (mild, mikhail in the bases. ) Cardio regular rate, regular rhythm, S1 normal heart sound, S2 normal heart sound, no murmurs, no rub and no gallops Cardio Narrative: No ectopy GI normal to inspection, nondistended, normoactive bowel sounds, soft to palpation and non-tender GI Narrative: No guarding with palpation Extremity no calf tenderness Extremity Narrative: Both feet are warm to the touch. General Extremity: Negative for clubbing, cyanosis or edema Skin no wounds General Skin Exam: no breakdown and dry skin Rashes: no rashes Neuro CN's II-XII intact bilaterally Neuro Narrative: Oriented to person but can tell me the month, year and her age when she looks to her right because information is written on the paper attached to the wall. She now remembers to look there when she cannot recall an answer. No ataxia, no extinction. Right leg is mildly weaker than the left but no drift. Mild decrease in sensation to the right lower extremity. Veers to the right at times when ambulating with a walker. Normal speech. No aphasia. No dysarthria. Speech is fluent. No behavioral disturbances. Psych cooperative Psych Narrative: Does not seem anxious or depressed. Always pleasant and cooperative. Appearance: appropriate Weight / BMI Weight Weight: 140 lb 3.424 oz Body Mass Index (BMI) 23.3 ABG / Lab / Microbiology Data 03/16/24 05:04 03/16/24 05:04 Laboratory: Laboratory Results - last 24 hr 03/15/24 17:00: POC Glucose 248 H 03/15/24 21:22: POC Glucose 375 H 03/16/24 05:04: WBC 5.8, RBC 4.03 L, Hgb 12.1, Hct 35.7 L, MCV 88.6, MCH 30.0, MCHC 33.9, RDW Std Deviation 43.7, RDW Coeff of Benjamin 13.4, Plt Count 170, MPV 11.3, Sodium 140, Potassium 3.6, Chloride 109 H, Carbon Dioxide 24.0, Anion Gap 7, BUN 11, Creatinine 0.42 L, Estim Creat Clear Calc 53.83, Est GFR (MDRD) Af Amer 188, Est GFR (MDRD) Non-Af 155, BUN/Creatinine Ratio 26.1 H, Glucose 148 H, Calcium 9.1 03/16/24 06:01: POC Glucose 131 H 03/16/24 11:13: POC Glucose 176 H Indicators for Scoring Admitted with or Primary Diagnosis of CVA/Stroke: Yes Hx of CVA/Stroke: No Modified [place] Score MRS Score at time of Evaluation: 4-Moderate/severe disability NIHSS NIHSS 1a. Level of Consciousness: Alert; keenly responsive 1b. LOC Questions: Answers BOTH questions correctly. (She is unable to recall her age or the month but, she now remembers where to look to find the answers to these questions. ) 1c. LOC Commands: Performs both tasks correctly. 2. Best Gaze: Normal 3. Visual: No visual loss 4. Facial Palsy: Normal symmetrical movements 5a. Left Arm: No drift; arm holds 90 (or 45) degrees for full 10 seconds 5b. Right Arm: No drift; arm holds 90 (or 45) degrees for full 10 seconds 6a. Left Leg: No drift; leg holds 30-degree position for full 5 seconds 6b. Right Leg: No drift; leg holds 30-degree position for full 5 seconds 7. Limb Ataxia: Absent 8. Sensory: [id number] sensory loss; (decreased sensation in the R distal leg. ) 9. Best Language: No aphasia; normal 10. Dysarthria: Normal 11. Extinction and Inattention: No abnormality Total: 1 Stroke Questions Stroke Team Activated: No D/C Instructions Discharge Diet: - (No concentrated sweets. Avoid too many carbs at one time. Sugar free candy can still increase the blood sugar if you eat too much of it. ) Weight Bearing Status: Full weight bearing When: You will get a new Primary care doctor in [place]. I would be happy to talk with your new doctor when you find one and update them on your condition. Meaningful Use Info Meaningful Use Meaningful Use Diagnoses (Choose all that apply): Ischemic CVA CVA Therapy Assessed for PT,OT and/or ST?: Yes Ischemic Stroke Antithrombotic order at d/c?: Yes Dx of Atrial fib/flutter?: No Anticoagulant at discharge?: No Reason anticoagulant not ordered: Treatment not Indicated Statin Dosing Therapy Reference: STATIN DOSE THERAPY REFERENCE: * Patients > 75 years receive moderate or high dose statin therapy. * Patients 75 years or YOUNGER should receive HIGH intensity statin dose unless contraindicated. You will be required to document reason for non-treatment if statin daily dose does not meet guidelines. HIGH DOSE STATIN THERAPY DAILY Atorvastatin > than or = to 40 mg Rosuvastatin > than or = to 20 mg Amlodipine + Atorvastatin > than or = to 2.5/40 mg Ezetimibe + Simvastatin 10/80 mg Simvastatin 80mg Statins at discharge?: Yes Primary Dx Acute Ischemic CVA?: Yes IV thrombolytic ordered during stay?: No Reason IV thrombolytic not ordered: Procedure not Indicated Discharge Plan Admission Admit Date/Time: 03/04/24 21:30 Primary Reason for Your Visit: POST STROKE DEBILITY. Attending Provider: Nelly Gomes Primary Care Provider: MICHELLE JUAN Instructions Additional Instructions / Restrictions: 1. You may want to consider seeing a neurologist in [place]. You have vascular dementia/Alzheimer's and there is treatment for some types of dementia to help slow down the memory loss. 2. Your heart does not squeeze quite as hard as it should and this is called a cardiomyopathy. You had an ultra sound of you your Heart at [facility] and it showed that the wall of the inferior and infero/septal area of the heart that does not squeeze well.......I suspect you may have had a heart attack in the past. The upper left chamber (called the left atrium is dilated and this can lead to a problem with the rhythm of the heart called AFIB. AFIB can cause strokes. I would advise you to see a communication specialist in [place]. You may need to wear a heart monitor for a couple of weeks to make sure that you are not having AFIB. IF you do have AFIB you would need to be on an bloiod thinner to help prevent strokes in the future. 3. You blood pressure is well controlled and your diabetes is usually pretty well controlled, unless you eat too much candy. Try and not eat too much candy, even sugar free, at once time. 4. We have all enjoyed having you on rehab and I think you have made some good improvement. You have a wonderful attitude and you are always so nice to everyone. I hope you do well in your new home and you and Malcolm are happy together. IF you or your family have any questions after you leave rehab please do not hesitate to call me. OFFICE: [phone] CELL: [phone] Discharge Orders/Prescriptions Prescriptions: New insulin lispro protamin-lispro [Humalog Mix 75-25 KwikPen] 100 unit/mL (75-25) insulin pen See Rx Instructions .ROUTE .COMPLEX Qty: 5 0RF Rx Instructions: 26 units with breakfast and 10 units with supper losartan 50 mg Tablet 50 mg PO DAILY Qty: 30 0RF magnesium chloride [Mag 64] 64 mg Tablet,Delayed Release (Dr/Ec) 128 mg PO DAILY Qty: 30 0RF potassium chloride 20 mEq Tablet,Er Particles/Crystals 20 meq PO BIDCM Qty: 60 0RF cholecalciferol (vitamin D3) [Vitamin D3] 10 mcg (400 unit) tablet 10 mcg PO BID Qty: 60 0RF calcium carbonate [Tums] 200 mg calcium (500 mg) tablet,chewable 200 mg PO BID Qty: 60 0RF Rx Instructions: Chew 1 TUMS twice a day Continued multivitamin [Multiple Vitamins] Tablet 1 tab PO DAILY aspirin [Adult Low Dose Aspirin] 81 mg tablet,delayed release (DR/EC) 81 mg PO DAILY paroxetine HCl [Paxil] 10 mg tablet 15 mg PO DAILY Qty: 30 0RF cilostazol 50 mg tablet 50 mg PO BID Qty: 60 0RF rosuvastatin [Crestor] 40 mg tablet 40 mg PO QHS Qty: 30 0RF Rx Instructions: Take this at bedtime Discontinued amlodipine 5 mg tablet 5 mg PO DAILY amoxicillin 250 mg capsule 500 mg PO TID calcium carbonate [Calcium 500] 500 mg calcium (1,250 mg) tablet,chewable 500 mg PO BID cholecalciferol (vitamin D3) [D3-2000] 50 mcg (2,000 unit) capsule 50 mcg PO DAILY potassium chloride [Klor-Con 10] 10 mEq tablet extended release 10 meq PO BID Referrals / Follow Up: Conner Wyatt-neurology [Other] - 04/07/24 11:00 am Veronique Truong [Other] (Call and make appointment once you are established in [place] You will need to sign a medical records release form at Michelle Juan office so they can send your records to Dr. Grace) MICHELLE JUAN CRNP [Primary Care Provider] - 03/23/24 1:00 pm Disposition Disposition (needs filled in before D/C Order can be placed): Home, Self Care Charges/Coding Visit Charges Inpatient E&M: 43498 Disch Hosp >30min
[2024-03-16 17:00] LABS: Bedside Glucose 84 mg/dL (74-106)
[2024-03-16] MEDS: Potassium Chloride Oral Tablet 20 MEQ PO (17:19)
[2024-03-16] MEDS: Insulin Human 75/25 Kwickpen 10 UNIT SC (17:19)
[2024-03-16 17:25] VITALS: BP 119/53; PULSE 81; RESP 16; TEMP 36.9; O2SAT 98
[2024-03-16 19:54] VITALS: PULSE 81; RESP 16; O2SAT 98
[2024-03-16] MEDS: Senna/Docusate Sodium 1 Tablet 2 TABLET PO (21:01)
[2024-03-16] MEDS: Atorvastatin Calcium 80 MG Tablet PO (21:01)
[2024-03-16] MEDS: PARoxetine 10 MG Tablet PO (21:01)
[2024-03-16 21:44] LABS: Bedside Glucose 82 mg/dL (74-106)
[2024-03-17] MEDS: Enoxaparin 40 MG/0.4 ML Syringe SC (05:34)
[2024-03-17] MEDS: Arthritis Pain Compound 60 CLICK TUBE TOPICAL (05:35)
[2024-03-17 05:41] VITALS: BP 133/62; PULSE 78; RESP 15; TEMP 36.6; O2SAT 95
[2024-03-17 06:31] LABS: Bedside Glucose 149 mg/dL (74-106)
[2024-03-17 06:31] LABS: Bedside Glucose 110 mg/dL (74-106)
[2024-03-17] MEDS: Potassium Chloride Oral Tablet 20 MEQ PO (07:33)
[2024-03-17] MEDS: Magnesium Chloride 64 MG Delay Rel.Tablet 128 MG PO (07:34)
[2024-03-17] MEDS: Aspirin E.C. 81 MG Tablet PO (07:34)
[2024-03-17] MEDS: Cholecalciferol (VIT D3) 25 MCG TABLET (1,000 UNITS) 50 MCG PO (07:34)
[2024-03-17] MEDS: Cilostazol 50 MG Tablet PO (07:34)
[2024-03-17] MEDS: Multivitamins,Therapeutic Tablet 1 TABLET PO (07:34)
[2024-03-17] MEDS: Losartan Potassium 50 MG Tablet PO (07:34)
[2024-03-17] MEDS: Calcium Carbonate 500 MG Tablet PO (07:34)
[2024-03-17] MEDS: Insulin Human 75/25 Kwickpen 26 UNIT SC (07:34)
[2024-03-17 11:57] LABS: Bedside Glucose 147 mg/dL (74-106)
--- NOTE | 2024-03-17 14:56 | NURSING ---
discharged home with daughter. discharge instructions, medications and appointments reviewed with daughter. denies questions or concerns
[2024-03-17 14:57] VITALS: BP 128/58; PULSE 76; RESP 16; TEMP 36.6; O2SAT 96
== END 2024-03-17 14:58 | disposition home or self-care (01) | DRG 57 ==
PROVIDERS: Admitting Provider Internal Medicine; PCP Nurse Practitioner Adult Health; Visit Provider Internal Medicine
DX: I69.341 Monoplegia of lower limb following cerebral infarction affecting right dominant side (principal); R78.81 Bacteremia; I42.9 Cardiomyopathy, unspecified; I50.42 Chronic combined systolic (congestive) and diastolic (congestive) heart failure; N39.0 Urinary tract infection, site not specified; E11.42 Type 2 diabetes mellitus with diabetic polyneuropathy; E11.51 Type 2 diabetes mellitus with diabetic peripheral angiopathy without gangrene; B95.2 Enterococcus as the cause of diseases classified elsewhere; I11.0 Hypertensive heart disease with heart failure; F01.C0 Vascular dementia, severe, without behavioral disturbance, psychotic disturbance, mood disturbance, and anxiety; G30.9 Alzheimer's disease, unspecified; Z79.4 Long term (current) use of insulin; F02.C0 Dementia in other diseases classified elsewhere, severe, without behavioral disturbance, psychotic disturbance, mood disturbance, and anxiety; F02.80 Dementia in other diseases classified elsewhere, unspecified severity, without behavioral disturbance, psychotic disturbance, mood disturbance, and anxiety; F32.A Depression, unspecified; I69.320 Aphasia following cerebral infarction; E78.5 Hyperlipidemia, unspecified; E86.0 Dehydration; I44.7 Left bundle-branch block, unspecified; F17.210 Nicotine dependence, cigarettes, uncomplicated; M21.371 Foot drop, right foot; F41.9 Anxiety disorder, unspecified; M81.0 Age-related osteoporosis without current pathological fracture; R33.9 Retention of urine, unspecified; Z66 Do not resuscitate; Z79.899 Other long term (current) drug therapy; Z79.82 Long term (current) use of aspirin; R94.31 Abnormal electrocardiogram [ECG] [EKG]
CPT/HCPCS: 36415; 74018; 80048; 80053; 82306; 82607; 82962; 83036; 83735; 84100; 84443; 85014; 85018; 85025; 85027; 85652; 86140; 92507; 92523; 93005; 97110; 97116; 97129; 97130; 97162; 97166; 97530; 97535; 97802